=== PATIENT | male | born 1945 | race Caucasian/White ===

== ENCOUNTER → 2025-02-20 | Outpatient (CLI) | payer OTHER, SELFPAY ==
[2025-02-20 09:20] LABS: Collection Type, Urine Clean Catch
[2025-02-20 09:44] LABS: Basophils # (Auto) 0.1 Thou/mm3 (0.0-0.2); Basophils % (Auto) 1 % (0-2.5); Eosinophils # (Auto) 0.5 Thou/mm3 (0.0-0.5); Eosinophils % (Auto) 6 % (0-10); Hematocrit 42.7 % (41.0-53.0); Hemoglobin 14.4 g/dL (13.5-16.0); Immature Granulocytes % (Auto) 1 % (0-0); Immature Granulocytes Auto 0.05 Thou/mm3 (0.00-0.00); Lymphocytes # (Auto) 1.3 Thou/mm3 (1.0-4.8); Lymphocytes % (Auto) 14 % (10-50); Mean Corpuscular HGB Conc 33.7 g/dl (31.0-37.0); Mean Corpuscular Hemoglobin 29.2 pg (25.0-35.0); Mean Corpuscular Volume 87 fL (80-100); Monocytes # (Auto) 0.9 Thou/mm3 (0.0-0.8); Monocytes % (Auto) 10 % (0-12); Neutrophils % (Auto) 68 % (37-80); Nucleated Red Blood Cell % 0 /100 WBC (0); Platelet Count 303 Thou/mm3 (140-440); RDW Standard Deviation 41.6 fL (35.1-43.9); Red Blood Count 4.93 Miln/mm3 (4.50-5.90); White Blood Count 8.8 Thou/mm3 (3.8-10.6)
[2025-02-20 09:51] LABS: Glucose Estimated Average 154 mg/dL (80-131)
[2025-02-20 09:55] LABS: Bacteria,Urine Rare; Bilirubin,Urine Negative (Negative); Blood,Urine Negative (Negative); Clarity,Urine Clear (Clear/Hazy); Color,Urine Yellow (Lt Yel-Yel); Glucose, Urine Negative (Negative); Ketones,Urine Negative (Negative); Leukocyte Esterase,Urine Negative (Negative); Nitrite,Urine Negative (Negative); PH,Urine 6.5 (5.0-7.0); Protein,Urine Trace (Neg - Trace); RBC,Urine 3 /hpf (0-3); Specific Gravity,Urine 1.019 (1.001-1.035); Squamous Epithelial Cell,Urine < 1 /hpf (0-5); WBC,Urine 6 /hpf (0-5)
[2025-02-20 10:00] LABS: Vitamin B12 496 pg/mL (211-911); Vitamin D 25 Hydroxy Total 58.6 ng/mL (7.3-40.2)
[2025-02-20 10:02] LABS: Alanine Aminotransferase 18 U/L (10-49); Albumin, Serum 4.2 gm/dL (3.4-4.8); Albumin/Globulin Ratio 1.6 (1.2-2.2); Alkaline Phosphatase 80 U/L (46-116); Anion Gap 10 (7-16); Aspartate Amino Transferase 23 U/L (0-34); BUN/Creatinine Ratio 11 Ratio (12-20); Blood Urea Nitrogen 11 mg/dL (9-23); Calcium 9.1 mg/dL (8.3-10.6); Calcium (Corrected) 9.1 mg/dL (8.5-10.1); Carbon Dioxide 27.6 mMol/L (20.0-31.0); Cardiac Risk Estimate 4.7 RATIO (4.0-6.7); Chloride 105 mMol/L (98-107); Cholesterol 146 mg/dL (132-200); Globulin 2.6 gm/dL (2.3-3.5); Glucose 121 mg/dL (74-106); HDL Cholesterol 31 mg/dL (40-60); LDL Cholesterol,Calculated 98 mg/dL (0-130); Osmolality,Calculated 285 (275-295); Potassium 3.5 mMol/L (3.4-5.1); Sodium 143 mMol/L (136-145); Thyroid Stimulating Hormone 3.26 uIU/mL (0.55-4.78); Total Protein 6.8 gm/dL (5.7-8.2); Triglycerides 85 mg/dL (30-150); eGFR > 60 See Note
[2025-02-20 10:13] LABS: Syphilis Nonreactive (Nonreactive)
== END | disposition home or self-care (01) ==
LOC: COPL 08:48
PROVIDERS: PCP Family Medicine; Referring Provider Family Medicine; Visit Provider Family Medicine
DX: Z00.00 Encounter for general adult medical examination without abnormal findings (principal); E11.40 Type 2 diabetes mellitus with diabetic neuropathy, unspecified; E78.2 Mixed hyperlipidemia; E55.9 Vitamin D deficiency, unspecified; R41.3 Other amnesia
CPT/HCPCS: 36415; 80053; 80061; 81001; 82306; 82607; 83036; 84443; 85025; 86780

== ENCOUNTER 2025-05-08 18:58 | Inpatient (IN) | payer OTHER, MEDICARE, SELFPAY ==
[2025-05-08 19:01] VITALS: PULSE 69; RESP 18; O2SAT 92
[2025-05-08 19:02] VITALS: BP 130/74; PULSE 70; RESP 18; TEMP 37; O2SAT 93
--- NOTE | 2025-05-08 19:03 | XR_ITS ---
Examination: AP chest single view Technique AP portable sitting chest single view Date and time: May 08, 2025 1912 hours INDICATIONS: Coughing the knee 3 days ago. FINDINGS: Moderate CHF Mild to moderate enlargement cardiac contour. Prominent vascular congestion with perihilar edema Reverse right shoulder arthroplasty IMPRESSION: Moderate CHF
--- NOTE | 2025-05-08 19:03 | XR_ITS ---
Examination: CT brain head without contrast. 2-D sagittal coronal reconstructions Date and time of exam:May 08, 2025 1934 hours INDICATIONS: Onset altered mental status today CTDI: vol (mGy):48.7 DLP: (mGycm):1004 Technique: Multiple CT axial sections of the brain have been obtained, 5 mm slice thickness. Contrast has not been administered. 2-D sagittal, coronal reconstructions have been obtained Low dose protocols were performed. One or more of the following dose reduction techniques were used; automated exposure control, adjustment of the mA and/or KV according to patient size, use of iterative reconstruction technique. Findings: No significant ventricular enlargement. Old infarct right cerebellar hemisphere Intra-axial or extra-axial hemorrhage density is not seen. No mass effect or midline shift Basal cisterns are not remarkable. Fourth ventricle is midline. Cranial vault intact. Impression: Negative for acute hemorrhage, mass effect or midline shift
[2025-05-08 19:27] LABS: Base Excess, Venous 5 (-3-3); Lactate (Lactic Acid) 1.8 mMol/L (0.4-2.0); O2 Saturation, Venous 92 % (96-97); PCO2, Venous 34 mmHg (36-56); PO2, Venous 55 mmHg (15-58); pH, Venous 7.52 (7.33-7.66)
[2025-05-08 19:32] LABS: Basophils # (Auto) 0.1 Thou/mm3 (0.0-0.2); Basophils % (Auto) 1 % (0-2.5); Eosinophils # (Auto) 0.1 Thou/mm3 (0.0-0.5); Eosinophils % (Auto) 2 % (0-10); Hematocrit 35.9 % (41.0-53.0); Hemoglobin 12.5 g/dL (13.5-16.0); Immature Granulocytes % (Auto) 1 % (0-0); Immature Granulocytes Auto 0.05 Thou/mm3 (0.00-0.00); Lymphocytes # (Auto) 0.6 Thou/mm3 (1.0-4.8); Lymphocytes % (Auto) 7 % (10-50); Mean Corpuscular HGB Conc 34.8 g/dl (31.0-37.0); Mean Corpuscular Hemoglobin 29.4 pg (25.0-35.0); Mean Corpuscular Volume 85 fL (80-100); Monocytes # (Auto) 0.6 Thou/mm3 (0.0-0.8); Monocytes % (Auto) 7 % (0-12); Neutrophils # (Auto) 7.3 Thou/mm3 (1.8-7.7); Neutrophils % (Auto) 83 % (37-80); Nucleated Red Blood Cell % 0 /100 WBC (0); Platelet Count 263 Thou/mm3 (140-440); RDW Standard Deviation 42.5 fL (35.1-43.9); Red Blood Count 4.25 Miln/mm3 (4.50-5.90); White Blood Count 8.9 Thou/mm3 (3.8-10.6)
[2025-05-08 19:53] LABS: B-Type Natriuretic Peptide 2717 pg/mL (0-100)
[2025-05-08 20:00] VITALS: BP 130/71; PULSE 74; RESP 24; TEMP 36.6; O2SAT 97
[2025-05-08 20:01] LABS: Alanine Aminotransferase < 7 U/L (10-49); Albumin, Serum 3.8 gm/dL (3.4-4.8); Albumin/Globulin Ratio 1.6 (1.2-2.2); Alkaline Phosphatase 62 U/L (46-116); Anion Gap 11 (7-16); BUN/Creatinine Ratio 16 Ratio (12-20); Bilirubin,Total 1.2 mg/dL (0.3-1.2); Blood Urea Nitrogen 13 mg/dL (9-23); Calcium 8.8 mg/dL (8.3-10.6); Carbon Dioxide 27.4 mMol/L (20.0-31.0); Chloride 103 mMol/L (98-107); Creatinine (Component) 0.8 mg/dL (0.6-1.3); Globulin 2.4 gm/dL (2.3-3.5); Glucose 172 mg/dL (74-106); Osmolality,Calculated 285 (275-295); Potassium 3.3 mMol/L (3.4-5.1); Procalcitonin 0.07 ng/ml (0.0-0.49); Sodium 141 mMol/L (136-145); Total Protein 6.2 gm/dL (5.7-8.2); eGFR > 60 See Note
[2025-05-08 20:19] LABS: Troponin I 0.087 ng/mL (0.0-0.045)
[2025-05-08 20:54] VITALS: BP 130/71; PULSE 63
[2025-05-08] MEDS: FUROSEMIDE INJ 10 MG/ML 4ML VIAL 40 MG IVP (20:54)
[2025-05-08] MEDS: Aspirin 325 MG TABLET PO (20:54)
--- NOTE | 2025-05-08 21:09 | EDNOTE_ITS ---
<Statement entered by Katrina Freire MD - 05/09/25 18:31> As co-signing physician, I was present and available for consult prn. I concur with the plan and care as documented by the midlevel provider. Neuro Symptoms Deficit-RME/HPI General Chief Complaint: Neuro Symptoms/Deficit Stated Complaint: SLURRED SPEECH Time Seen by Provider: 05/08/25 19:03 Arrival date/time: 05/08/25 18:58 Limitations: no limitations RME / HPI RME / HPI Narrative: 79-year-old male with history of diabetes comes in by EMS after being found on the floor. Initially patient appeared confused but able to respond to questions moving all extremities. Per yesterday's behavior was odd for patient. She thought it was related to his diabetic neuropathy and taking too much gabapentin. Rachel yesterday started complaining about cough and some shortness of breath today took a little too much Robitussin and thinks it had a bad interaction with gabapentin. Denies headache or chest pain at this time but is having shortness of breath. And some leg swelling which is new for him. 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 No history of stroke stents or [place]. Recently moved from [place]. No fever. Related Data Home Medications ?Medication ?Instructions ?Recorded ?Confirmed bupropion HCl 150 mg tablet,12 hr 150 mg PO BID 05/09/25 sustained-release fluticasone propionate 50 1 spray intranasal QDAY PRN nasal 05/09/25 05/09/25 mcg/actuation nasal congestion spray,suspension gabapentin 800 mg tablet 800 mg PO TID 05/09/2505/09 pantoprazole 40 mg tablet,delayed 40 mg PO DAILY 05/0905/09/25 release sertraline 100 mg tablet 100 mg PO HS 05/09/25 tamsulosin 0.4 mg capsule 0.4 mg PO DAILY 05/09/2510/23 Allergies Allergy/AdvReac Type Severity Reaction Status Date / Time No Known Allergies Allergy Verified 05/08/25 19:03 Review of Systems Review of Systems Systems Reviewed: All systems reviewed, normal except as documented Constitutional Constitutional: Denies fever(s) Cardiovascular Cardiovascular: Denies chest pain and Reports dyspnea Respiratory Respiratory: Reports as per HPI and Reports dyspnea Musculoskeletal Musculoskeletal: Reports as per HPI and Reports limited range of motion ED Exam General Limitations: Present no limitations General appearance: Present alert and in no apparent distress Head Head exam: Present atraumatic Eye Eye exam: Present normal appearance, PERRL and EOMI ENT ENT exam: Present normal exam, normal oropharynx and mucous membranes moist Neck Neck exam: Present normal inspection, full ROM and trachea midline Chest Chest inspection: Present normal inspection and symmetric chest wall rise Respiratory Respiratory exam: Present other (Crackles noted with documented hypoxia) Cardiovascular Cardiovascular exam: Present regular rate, normal rhythm and normal heart sounds Abdominal Exam Abdominal exam: Present soft and normal bowel sounds Extremities Exam Extremities exam: Present full ROM and other (1+ bilateral edema to extremities) Back Exam Back exam: Present normal inspection and full ROM Neurological Exam Neurological exam: Present alert, oriented X3 and CN II-XII intact Psychiatric Psychiatric exam: Present normal affect and normal mood Skin Skin exam: Present warm, dry, intact and normal color Course Quality Measures none Orders Category Date Time Status Bedside COVID-19 Antigen Test NOW Care 05/08/25 19:04 Active Bedside Influenza A&B Antigen Test NOW Care 05/08/25 19:04 Completed EKG (ED ONLY) *Do not use* NOW Care 05/08/25 19:[address] head/brain wo con Stat Exams 05/08/25 19:03 Completed EKG (ED Only) Stat Exams 05/08/25 19:03 Ordered XR chest 1V Stat Exams 05/08/25 19:03 Completed BNP [B-Type Natriuretic Peptide] Stat Lab 05/08/25 19:21 Completed Blood Culture (Lab) Stat Lab 05/08/25 21:39 Received CBC Stat Lab 05/08/25 19:21 Completed CMP [Comprehensive Metabolic Panel] Stat Lab 05/08/25 19:21 Completed Lactic Acid [Lactate (Lactic Acid)] Stat Lab 05/08/25 19:21 Completed Procalcitonin Stat Lab 05/08/25 19:21 Completed Troponin I Stat Lab 05/08/25 19:21 Completed VBG [Venous Blood Gas] Stat Lab 05/08/25 19:21 Completed Aspirin Med 05/08/25 20:40 Discontinued 325 mg PO X1 ONE Furosemide Inj [Lasix Inj] Med 05/08/25 20:40 Discontinued 40 mg IVP X1 ONE Vital Signs Vital signs: Vital Signs Temperature 98.6 F 05/08/25 19:02 Pulse Rate 70 05/08/25 19:02 Respiratory Rate 18 05/08/25 19:02 Blood Pressure 130/74 05/08/25 19:02 Pulse Oximetry (%) 93 L 05/08/25 19:02 Oxygen Delivery Method Nasal Cannula 05/08/25 19:02 Oxygen Flow Rate 6 05/08/25 19:02 Procedures -ED EKG Interpretation #1: Date of EK05/08/25 Time of EK:11 Rate: 70 Interpretation: Interpreted by me EKG Impression: Normal sinus rhythm, No acute ST-T changes and No ectopy Neuro Symptoms / Deficit MDM Narrative MDM Narrative:: 79-year-old male with history of recurrent falls here for shortness of breath. Found to be in heart failure with elevated BNP and troponin. No history of same. For that reason we will bring him for acute CHF exacerbation Patient data External records reviewed:: None Clinical information provided by:: patient and family Social determinants that could affect healthcare access:: other (specify) (Elderly patient requiring assistance) Patient has the following chronic illnesses:: Diabetes How is presenting disease/condition affected by chronic disease/condition?: exacerbated by Evaluation data The following diagnostics were reviewed and interpreted by me:: lab results and radiology exam(s) Lab and/or radiology exams considered but not ordered:: CTA of chest was considered however unlikely to change course of action to admit Interpretation Summary: Normal CBC, CMP. Chest x-ray showed moderate CHF, CT of head within normal limits. Troponin of 0.087 and BNP of 2,717 Medications / Prescriptions Medications or Prescriptions considered but not ordered:: All medications considered given other than nitro patient declined Medication administrations:: Medication Administration History Acetaminophen (Acetaminophen 325 Mg Tablet) 650 mg PO Q6H PRN PRN Reason: pain and Fever >100.4 Stop: 06/07/25 23:12 Hydrocodone Bitart/Acetaminophen (Hydrocodone/Apap 5/325 Tablet) 1 tab PO Q4HR PRN PRN Reason: PAIN SCALE 4-10(Mod-Sev Stop: 05/13/25 23:12 Aspirin (Aspirin Ec 81 Mg Tabec) 81 mg PO QDAY VLADISLAV Stop: 06/08/25 08:59 Dextrose (Dextrose 50%-Water Inj 50 Ml Syringe) 25 ml IV Q15MIN PRN PRN Reason: BG 50-70 responsive npo pt Stop: 06/08/25 00:00 Dextrose (Dextrose 50%-Water Inj 50 Ml Syringe) 50 ml IV Q15MIN PRN PRN Reason: BG <50 OR BG <70 & pt unresponsive Stop: 06/08/25 00:00 Furosemide (Furosemide Inj 10 Mg/Ml 4ml Vial) 40 mg IVP BIDD VLADILSAV Stop: 06/08/25 05:59 Last Admin: 05/09/25 05:54 Dose: 40 mg Documented By: Glucagon (Glucagon Inj 1 Mg Vial) 1 mg IM Q15MIN PRN PRN Reason: BG <70, and no IV access Insulin Human Lispro (Insulin Lispro (Admelog) 1 Unit/0.01 Ml Unit) 0 unit SC Q6H VLADISLAV; Protocol Stop: 06/08/25 00:00 Last Admin: 05/09/25 05:55 Dose: Not Given Documented By: Non-Admin Reason: Patient Refused Admin: 05/09/25 01:37 Dose: Not Given Documented By: LADAN Non-Admin Reason: Patient Refused Ondansetron HCl (Ondansetron Inj 2 Mg/Ml Inj 2 Ml) 4 mg IVP Q6H PRN; Protocol PRN Reason: NAUSEA OR VOMITING Stop: 06/07/25 23:12 Pantoprazole Sodium (Pantoprazole Inj 40 Mg Vial) 40 mg IVP QDAY [facility] Stop: 06/08/25 08:59 Discontinued Medications Aspirin (Aspirin 325 Mg Tablet) 325 mg PO X1 ONE Stop: 05/08/25 20:41 Last Admin: 05/08/25 20:54 Dose: 325 mg Documented By: LATOSHA Furosemide (Furosemide Inj 10 Mg/Ml 4ml Vial) 40 mg IVP X1 ONE Stop: 05/08/25 20:41 Last Admin: 05/08/25 20:54 Dose: 40 mg Documented By: LATOSHA Heparin Sodium (Porcine) (Heparin Sod Inj 5000 Unit/Ml Vial) 5,000 unit SC Q8HR [facility] Stop: 05/23/25 05:59 Potassium Chloride (Kcl Ivpb) 10 meq in 100 mls @ 100 mls/hr IV Q1H VLADISLAV Stop: 05/09/25 01:46 Last Infusion: 05/09/25 03:43 Dose: Infused Documented By: Admin: 05/09/25 02:43 Dose: 100 mls/hr Documented By: Infusion: 05/09/25 02:23 Dose: Infused Documented By: Admin: 05/09/25 01:23 Dose: 100 mls/hr Documented By: LATOSHA Potassium Chloride (Potassium Chloride 20 Meq Tabcr) 40 meq PO X1 ONE Stop: 05/09/25 08:19 See above Consultations Consultation(s) initiated? (list below): Yes Consultation #1 (Physician, Specialty, Details): [id number] Nagel is working with Dr. Villalobos for admission for acute chf exacerbation, pt will be admittede for acute chf exacerbation Diagnosis Neuro Differential Diagnosis: delirium, cerebrovascular accident, transient cerebral ischemia and other (ACS, CHF, polypharmacy altered mentation) Most likely diagnosis given after review of the tests above:: Acute CHF exacerbation Diabetes Polypharmacy Admission Indicated Admission indicated?: indicated Admission Request Was there a request for admission?: Yes Admission Attestation Admission request attestation: Discussed case with Dr. villalobos Hospitalist service regarding admission. Discussed patients ED course, exam findings, labs, and radiology results. The Hospitalist agrees to accept the patient for admission. Disposition Plan Disposition Plan: Admit Discharge Plan Plan Patient Disposition: Admit Acute Care w/in Hospital Discharge Disposition comment: Dr. Villalobos Problem List Clinical Impression: Acute exacerbation of CHF (congestive heart failure), Shortness of breath, Diabetes mellitus, Fall PA/NETWORKING TECHNICIAN Supervising Physician PA/NETWORKING TECHNICIAN Supervising Physician: Dr. Freire
[2025-05-08 22:12] VITALS: BMI 28.7
[2025-05-08 22:21] VITALS: BP 147/87; PULSE 70; RESP 24; TEMP 36.9; O2SAT 97
--- NOTE | 2025-05-08 23:18 | PD.RESHP ---
Documentation for date of: 05/08/25 HPI History of Present Illness Chief complaint: Cough, Dyspnea on exertion, fall History of present illness: 79-year-old male with past medical history of peripheral neuropathy, depression, and DM2 was admitted to the hospital on 05/08/2025 with come to the ED with complaints of cough along with shortness of breath on exertion and today he also had a fall. Patient's was at bedside and stated that today he had a fall in the shower and was stumbling around an hour as she was asleep and did not hear him. She stated that she pulled him out of the shower and called EMS to come and get him. Patient's stated that he has been having trouble with his short-term memory and he has been more secluded since they moved to [place] from [place]. She stated that he is not wearing his dentures and that he is taking medication for his depression as well. When asked patient states that he is fine and he is currently AO x 4 at this time. He stated that he has been having some cough that started the day before yesterday and he has been taking Robitussin little sips at a time whenever he has a cough. He states that he can lay flat, but patient's stated that whenever he walks he becomes very short of breath walking from the room to the kitchen and back he gets very short of breath. He uses a walker, but he has been having multiple falls as of recently per the . He has not noticed any swelling in the lower extremities and states that he has not had any heart issues in the past. Otherwise the patient's only had complaints that he has been more delirious. ED course: Initially came in normotensive and afebrile. Initial labs were relevant for low hemoglobin, hypokalemia, troponinemia, and elevated BNP. Initial imaging included chest x-ray which showed CHF pattern and head CT which was unremarkable. PMH: As above Surgical Hx: Bilateral knee and shoulder surgery Medications: Gabapentin Social Hx: Denies any drugs, smoking, alcohol Review of Systems Review of Systems Systems Reviewed: All systems reviewed, normal except as documented Exam Vital Signs Temp Pulse Resp BP Pulse Ox O2 Del Method O2 Flow Rate 98.5 F 70 24 H 147/87 H 97 Nasal Cannula 6 05/08/25 22:21 05/08/25 22:21 05/08/25 22:21 05/08/25 22:21 05/08/25 22:21 05/08/25 22:21 05/08/25 22:21 Narrative Exam General: A/O x4, no acute distress Eyes: PERRL, EOMI. Anicteric, vision grossly intact. Ears: No ear pain, no ear discharge, Hearing grossly intact. Nose: No nasal discharge. Mouth/Throat: Moist mucous membranes, missing dentures no redness, no lesions. Neck: Neck supple, non-tender, no cervical lymphadenopathy. Lungs: decreased in ROS lower lobes, No accessory muscle use. Cardio: Normal S1/S2, regular rhythm, no murmurs, no JVD Abdomen: Soft, non-tender, no palpable masses, peristalsis present, no guarding or rebound. Extremities: Symmetrical, no significant deformities, no peripheral edema , non-tender, peripheral pulses presents. Skin: No rashes, no lesions, warm to touch. Neuro: No focal neurological deficits. motor and sensory intact Psych: Cooperative, appropriate mood and effect. Results: Labs 05/08/25 19:21 05/08/25 19:21 Labs: Short CBC 05/08/25 Range/Units 19:21 WBC 8.9 (3.8-10.6) Thou/mm3 Hgb 12.5 L (13.5-16.0) g/dL Hct 35.9 L (41.0-53.0) % Plt Count 263 (140-440) Thou/mm3 BMP 05/08/25 19:21 Sodium 141 Potassium 3.3 L Chloride 103 Carbon Dioxide 27.4 BUN 13 Creatinine 0.8 Glucose 172 H Calcium 8.8 Cardiac Enzymes 05/08/25 Range/Units 19:21 Troponin I 0.087 H* (0.0-0.045) ng/mL Liver Function 05/08/25 Range/Units 19:21 Total Bilirubin 1.2 (0.3-1.2) mg/dL ALT < 7 L (10-49) U/L Alkaline Phosphatase 62 (46-116) U/L Albumin 3.8 (3.4-4.8) gm/dL ABG Interpretation ABG results: 05/08/25 19:21 VBG pH 7.52 VBG pCO2 34 L VBG pO2 55 VBG Base Excess 5 H Quality Measures Quality Measures VTE prophylaxis Advance care planning discussed with:: patient and spouse Medications Home Medications and Allergies Allergies Allergy/AdvReac Type Severity Reaction Status Date / Time No Known Allergies Allergy Verified 05/08/25 19:03 Visit Medications Acetaminophen (Acetaminophen 325 Mg Tablet) 650 mg PO Q6H PRN PRN Reason: pain and Fever >100.4 Stop: 06/07/25 23:12 Hydrocodone Bitart/Acetaminophen (Hydrocodone/Apap 5/325 Tablet) 1 tab PO Q4HR PRN PRN Reason: PAIN SCALE 4-10(Mod-Sev Stop: 05/13/25 23:12 Furosemide (Furosemide Inj 10 Mg/Ml 4ml Vial) 40 mg IVP BIDD [facility] Stop: 06/08/25 05:59 Heparin Sodium (Porcine) (Heparin Sod Inj 5000 Unit/Ml Vial) 5,000 unit SC Q8HR VLADISLAV Stop: 05/23/25 05:59 Ondansetron HCl (Ondansetron Inj 2 Mg/Ml Inj 2 Ml) 4 mg IVP Q6H PRN; Protocol PRN Reason: NAUSEA OR VOMITING Stop: 06/07/25 23:12 Discontinued Medications Aspirin (Aspirin 325 Mg Tablet) 325 mg PO X1 ONE Stop: 05/08/25 20:41 Last Admin: 05/08/25 20:54 Dose: 325 mg Furosemide (Furosemide Inj 10 Mg/Ml 4ml Vial) 40 mg IVP X1 ONE Stop: 05/08/25 20:41 Last Admin: 05/08/25 20:54 Dose: 40 mg Assessment & Plan Plan 79-year-old male with past medical history of peripheral neuropathy, depression, and DM2 was admitted to the hospital on 05/08/2025 for new onset acute decompensated heart failure. #Acute decompensated heart failure exacerbation, new onset #Dyspnea on exertion #Troponinemia Patient came in with complaints of dyspnea on exertion Patient has no history of heart failure On physical exam patient has no lower extremity edema BNP was elevated at 2717 Troponins were elevated at 0.087, but patient did not have any chest pain. Chest x-ray that shows CHF pattern Plan: IV Lasix 40 twice daily Echo ordered Trend troponins Daily weights Strict LAUREN's Keep potassium magnesium above 4 and 2 respectively Cardiology consulted, appreciate recommendations #Normocytic normochromic anemia #Vomiting Patient came hemoglobin 12.5 and was previously 14.4 on 02/20/2025 Patient was noted to have an episode of dark emesis, but did not look like coffee-ground No active signs of bleeding Plan: Protonix 40 twice daily for now, consider switching to p.o. if patient passes swallow screen and no more episodes of dark emesis Consider GI consult with patient's hemoglobin continues to drop for possible GI bleed We will continue to monitor #Ground-level fall Patient had a fall today in the shower Plan: Shoulder x-ray ordered as patient hit his shoulders Will follow-up on shoulder x-ray #Changes in mental status Patient's stated that patient has been having issues with short-term memory and that she has seen him more withdrawn and secluded to his room This could be possible depression versus possible progression of dementia Head CT was negative Plan: Consider outpatient neurology follow-up for further workup. #Cough Patient has been having a cough for the past 2 days and around 3 weeks ago he sick contact with the flu Patient does not have any fevers and has not had any WBC spikes and procalcitonin was negative therefore low threshold for pneumonia Plan: Consider starting patient on antibiotics if he spikes any fevers or spikes any WBC. Chronic diseases: #DM2 #Peripheral neuropathy ISS and hypoglycemia protocol ordered Pending med reconciliation Disposition: Patient admitted to telemetry for new onset CHF Diet: NPO GI prophylaxis: Protonix DVT prophylaxis: SCDs Code: DNR Case disclosed with Attending Dr. Griselda Adrian PGY1 Disclaimer: Even though this this note was dictated by speech recognition and even though it was carefully revised there may still be minor errors in pole classifier due to voice recognition software. Attending Provider Attestation/Addendum I reviewed labs, imaging, EKG, home medications and prior available records. Face to face evaluation was performed by me. I have personally examined the patient and discussed assessment and plan with the IM team. I reviewed the resident note and agree with the plan with exceptions as below. Ground-level fall Dyspnea on exertion New onset CHF Dyspepsia Elevated troponin Hypokalemia Cognitive impairment Patient does have significant BNP elevation as well as pulmonary vascular congestion Less likely due to pneumonia as no leukocytosis, productive cough, or elevated procalcitonin Reported brown emesis. Will start IV Protonix. Monitor for hematemesis and trend H&H Trend troponin Order echocardiogram Consult cardiology Replete potassium as needed and monitor BMP
[2025-05-08 23:34] VITALS: BP 150/86; PULSE 73; RESP 26; O2SAT 96
--- NOTE | 2025-05-08 23:37 | XR_ITS ---
Shoulder bilateral, 2 views Technique: Shoulder AP internal rotation, each shoulder total 2 views Exam date and time :May 08, 2000 2540 5:00 PM INDICATIONS: Patient fell today with injury to both shoulders, bilateral shoulder pain. FINDINGS: Reverse right shoulder arthroplasty with satisfactory alignment Orthopedic screws left humeral head No fracture involving either shoulder IMPRESSION: No fracture involving either shoulder
--- NOTE | 2025-05-08 23:44 | XR_ITS ---
Examination: Abdomen AP single view Technique: AP portable supine abdomen, single view Exam date and time: May 08, 2025 11:53 PM INDICATIONS: Abdominal distention today. FINDINGS: Moderate stool throughout the colon A loop of small bowel in the upper abdomen No free air Prominent osteopenia IMPRESSION: Suspicious for mild small bowel ileus, consider three-way abdominal series follow up as clinically warranted
[2025-05-09] VITALS (12 sets, daily range): BP systolic 128–165; BP diastolic 71–102; PULSE 65–78; RESP 18–24; TEMP 36.1–36.4; O2SAT 92–95; BMI 27.8
[2025-05-09 00:14] LABS: Troponin I 0.069 ng/mL (0.0-0.045)
[2025-05-09] MEDS: POTASSIUM CHL 10 mEq IVPB 10 MEQ/100 ML BAG 100 MEQ IV ×2 (01:23→02:43)
[2025-05-09 05:00] LABS: Basophils # (Auto) 0.1 Thou/mm3 (0.0-0.2); Basophils % (Auto) 1 % (0-2.5); Eosinophils % (Auto) 0 % (0-10); Immature Granulocytes % (Auto) 1 % (0-0); Immature Granulocytes Auto 0.06 Thou/mm3 (0.00-0.00); Lymphocytes # (Auto) 0.8 Thou/mm3 (1.0-4.8); Lymphocytes % (Auto) 6 % (10-50); Mean Corpuscular HGB Conc 34.2 g/dl (31.0-37.0); Mean Corpuscular Hemoglobin 29.6 pg (25.0-35.0); Mean Corpuscular Volume 87 fL (80-100); Monocytes # (Auto) 0.7 Thou/mm3 (0.0-0.8); Monocytes % (Auto) 6 % (0-12); Neutrophils # (Auto) 10.6 Thou/mm3 (1.8-7.7); Neutrophils % (Auto) 87 % (37-80); Nucleated Red Blood Cell % 0 /100 WBC (0); Platelet Count 270 Thou/mm3 (140-440); RDW Standard Deviation 42.9 fL (35.1-43.9); Red Blood Count 4.39 Miln/mm3 (4.50-5.90); White Blood Count 12.2 Thou/mm3 (3.8-10.6)
--- NOTE | 2025-05-09 05:23 | PC.NURSE ---
Report called for floor nurse, JEWEL Velazco
[2025-05-09] MEDS: FUROSEMIDE INJ 10 MG/ML 4ML VIAL 40 MG IVP ×2 (05:54→17:58)
--- NOTE | 2025-05-09 08:03 | EKG_ITS ---
[facility] Test Date: 2025-05-09 Pat Name: STEFANI ROWLEY [facility] Gender[facility] Artist Model: KEIKO : [id number] Requested By: Adelia Cavazos Order Number: [id number] Reading MD: Adelia Cavazos Measurements Intervals [place] Rate: 73 P: -73 IA: 117 QRS: 48 QRSD: 110 T: 29 QT: 414 QTc: 458 Interpretive Statements JUNCTIONAL RHYTHM WITH OCCASIONAL VENTRICULAR PREMATURE COMPLEXES POSSIBLE INFERIOR MYOCARDIAL INFARCTION , PROBABLY OLD ABNORMAL RHYTHM ECG No previous ECG available for comparison /[id number]/[email or web address]/[id number]
[2025-05-09 08:27] LABS: Collection Type, Urine Clean Catch; Squamous Epithelial Cell,Urine 0 /hpf (0-5)
[2025-05-09 08:27] LABS: Glucose Estimated Average 137 mg/dL (80-131); Hemoglobin A1C 6.4 % Hgb (4.8-6.0)
[2025-05-09 08:29] LABS: Cardiac Risk Estimate 3.7 RATIO (4.0-6.7); Cholesterol 141 mg/dL (132-200); HDL Cholesterol 38 mg/dL (40-60); LDL Cholesterol,Calculated 85 mg/dL (0-130); Triglycerides 89 mg/dL (30-150)
[2025-05-09 08:33] LABS: Bilirubin,Urine Negative (Negative); Blood,Urine Negative (Negative); Clarity,Urine Clear (Clear/Hazy); Color,Urine Colorless (Lt Yel-Yel); Glucose, Urine Negative (Negative); Hyaline Casts,Urine < 1 /hpf (0-1); Ketones,Urine Negative (Negative); Leukocyte Esterase,Urine Negative (Negative); Nitrite,Urine Negative (Negative); PH,Urine 7.5 (5.0-7.0); Protein,Urine Negative (Neg - Trace); RBC,Urine 2 /hpf (0-3); Specific Gravity,Urine 1.006 (1.001-1.035); Urobilinogen,Urine Negative mg/dL (0.0-1.0); WBC,Urine 1 /hpf (0-5)
[2025-05-09] MEDS: ASPIRIN EC 81 MG TABEC PO (08:53)
[2025-05-09] MEDS: PANTOPRAZOLE INJ 40 MG VIAL IVP (08:54)
[2025-05-09] MEDS: TAMSULOSIN HCL 0.4 MG CAPSULE PO (08:54)
[2025-05-09] MEDS: POTASSIUM CHLORIDE 20 mEq TABCR 40 MEQ PO (08:59)
--- NOTE | 2025-05-09 09:37 | PD.RESCONSUL ---
HPI Data of Consult Requesting Physician: Ryan Acharya MD Admitting Provider: Dakota Villalobos MD Attending Provider: Ryan Acharya MD Primary Care Provider: Physician No Primary/Family Consult Narrative History of present illness: CC: mechanical fall and Shortness of Breath Patient is an 79-year-old male with a past medical history of diabetes mellitus type 2 [id number] (no medication on board/initially on metformin but DC'd after weight loss), peripheral neuropathy, history of depression, and BPH who presented to the emergency room with increasing shortness of breath and concern for a mechanical level mechanical fall. Patient stated requires pillows to sleep at night (positive orthopnea), denied paroxysmal nocturnal dyspnea, lower peripheral edema gradually increasing over the last 15 years. Patient experiences shortness of breath upon ambulation, per , patient can only take about 45 steps and then experiences shortness of breath. Patient has never followed up with a boiler engineer. Patient was set to establish primary care this week with Dr. Bowman. Concern for mechanical fall that occurred in the restroom. Patient stated he lost his balance as he was turning with his walker. Patient denied tripping on a rug or on his feet and to clear of any obstructions. Patient denied seizure-like activity. Patient denied losing consciousness. Patient denied head trauma. Patient denied dizziness or syncopal event. Per at bedside, patient has been having increasing problems with short-term memory and balance. Patient denied any chest pain or pressure. Denied nasuea or diaphoresis. Denied any recent sick contacts. 05/09/2025: Overnight admission. Cardiology Consulted for new onset of CHF. Patient examined at bedside, per chart review, edema on admission, this morning trace edema. Reduce Lasix from 40 mg BID to lasix 40 mg IVP Qday. Introduce Metoprolol Succinate 25 mg qday, blood pressure permitting. 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 NO Hoarseness, NO sore throat, NO swollen neck. Cardiac: NO Palpitations, Yes dyspnea on exertion, YES orthopnea, NO paroxysmal nocturnal dyspnea, Yes edema Respiratory: NO Shortness of Breath, NO Wheezing, NO Cough, NO Sputum, NO hemoptysis GI:NO appetite, NO nausea, NO vomiting, NO dysphagia, NO changes in bowel frequency, NO stool color, NO diarrhea, NO constipation, NO hemetemesis, NO hemorrhoids, NO melena, NO hematechezia, NO abdominal pain, NO jaundice Renal: NO frequency, NO hesitancy, NO urgency, NO hematuria, NO nocturia, No incontinence, Retention, yes, secondary to BPH MSK: NO muscle weakness, NO gout, NO arthritis, NO muscle stiffness Neuro: NO headaches, NO tremors, NO weakness, NO paralysis, NO seizures, NO loss of consciousness, NO numbness. Hem: NO anemia, NO easy bruising/bleeding, NO petechiae, NO purpura Endo: NO heat/cold intolerance, NO excessive sweating, NO polyuria, NO polydipsia, NO polyphagia, NO thyroid problems, NO diabetes Pysch: NO mood, NO anxiety, NO depression Exam Vital Signs Temp Pulse Resp BP Pulse Ox O2 Del Method O2 Flow Rate 97.6 F 72 18 150/85 H 95 Nasal Cannula 3 05/09/25 08:00 05/09/25 08:00 05/09/25 08:00 05/09/25 08:00 05/09/25 08:00 05/09/25 08:00 05/09/25 08:00 Narrative Exam General Appearance: Alert & Oriented X2, well-nourished male who is lying in bed in no acute distress HEENT: Skull symmetrical and atraumatic. Conjunctivae pale pink and moist. Pupils equal, round, reactive to light and accommodation (PERRL). External ear without lesion or discharge. Cardio: Normal Rate and Rhythm with S1 and S2 heart sounds. Faint systolic murmur. No bruits on carotid auscultation. Trace edema. Lungs: Symmetric with good expansion. Chest and back non-tender. Breath sounds vesicular without crackles, wheezing or rhonchi Abdomen: Non-tender, Non-distended, Normal Reactive Bowel Sounds Neuro: Alert, cooperative, oriented to person, place, and NO time. Speech clear. CN grossly intact. Upper motor strength 5/5 and Lower motor strength 5/5. Sensation intact. Results Labs 05/09/25 04:35 05/08/25 19:21 Labs: Short CBC 05/08/25 05/09/25 Range/Units 19:21 04:35 WBC 8.9 12.2 H (3.8-10.6) Thou/mm3 Hgb 12.5 L 13.0 L (13.5-16.0) g/dL Hct 35.9 L 38.0 L (41.0-53.0) % Plt Count 263 270 (140-440) Thou/mm3 BMP 05/08/25 19:21 Sodium 141 Potassium 3.3 L Chloride 103 Carbon Dioxide 27.4 BUN 13 Creatinine 0.8 Glucose 172 H Calcium 8.8 Cardiac Enzymes 05/08/25 05/08/25 Range/Units 19:21 23:35 Troponin I 0.087 H* 0.069 H* (0.0-0.045) ng/mL Liver Function 05/08/25 Range/Units 19:21 Total Bilirubin 1.2 (0.3-1.2) mg/dL ALT < 7 L (10-49) U/L Alkaline Phosphatase 62 (46-116) U/L Albumin 3.8 (3.4-4.8) gm/dL Urine 05/09/25 Range/Units 08:00 Urine Color Colorless A (Lt Yel-Yel) Urine Clarity Clear (Clear/Hazy) Urine pH 7.5 H (5.0-7.0) Ur Specific [place] 1.006 (1.001-1.035) Urine Protein Negative (Neg - Trace) Urine Glucose (UA) Negative (Negative) ABG Interpretation ABG results: 06/10/25 19:21 VBG pH 7.52 VBG pCO2 34 L VBG pO2 55 VBG Base Excess 5 H Quality Measures Quality Measures none Advance care planning discussed with:: patient Medications Home Medications and Allergies Home Medications ?Medication ?Instructions ?Recorded ?Confirmed ?Type bupropion HCl 150 mg tablet,12 hr 150 mg PO BID 05/09/25 05/09/25 History sustained-release fluticasone propionate 50 1 spray intranasal QDAY PRN nasal 05/09/25 05/09/25 History mcg/actuation nasal congestion spray,suspension gabapentin 800 mg tablet 800 mg PO TID 05/09/25 05/09/25 History pantoprazole 40 mg tablet,delayed 40 mg PO DAILY 05/09/25 05/09/25 History release sertraline 100 mg tablet 100 mg PO HS 05/09/25 05/09/25 History tamsulosin 0.4 mg capsule 0.4 mg PO DAILY 05/09/25 05/09/25 History Allergies Allergy/AdvReac Type Severity Reaction Status Date / Time No Known Allergies Allergy Verified 05/08/25 19:03 Visit Medications Acetaminophen (Acetaminophen 325 Mg Tablet) 650 mg PO Q6H PRN PRN Reason: pain 1-3 OR Fever >100.4 Stop: 06/07/25 23:12 Hydrocodone Bitart/Acetaminophen (Hydrocodone/Apap 5/325 Tablet) 1 tab PO Q4HR PRN PRN Reason: PAIN SCALE 4-10(Mod-Sev Stop: 05/13/25 23:12 Aspirin (Aspirin Ec 81 Mg Tabec) 81 mg PO QDAY [facility] Stop: 06/08/25 08:59 Last Admin: 05/09/25 08:53 Dose: 81 mg Dextrose (Dextrose 50%-Water Inj 50 Ml Syringe) 25 ml IV Q15MIN PRN PRN Reason: BG 50-70 responsive npo pt Stop: 06/08/25 00:00 Dextrose (Dextrose 50%-Water Inj 50 Ml Syringe) 50 ml IV Q15MIN PRN PRN Reason: BG <50 OR BG <70 & pt unresponsive Stop: 06/08/25 00:00 Furosemide (Furosemide Inj 10 Mg/Ml 4ml Vial) 40 mg IVP BIDD [facility] Stop: 06/08/25 05:59 Last Admin: 05/09/25 05:54 Dose: 40 mg Glucagon (Glucagon Inj 1 Mg Vial) 1 mg IM Q15MIN PRN PRN Reason: BG <70, and no IV access Insulin Human Lispro (Insulin Lispro (Admelog) 1 Unit/0.01 Ml Unit) 0 unit SC Q6H VLADISLAV; Protocol Stop: 06/08/25 00:00 Last Admin: 05/09/25 05:55 Dose: Not Given Ondansetron HCl (Ondansetron Inj 2 Mg/Ml Inj 2 Ml) 4 mg IVP Q6H PRN; Protocol PRN Reason: NAUSEA OR VOMITING Stop: 06/07/25 23:12 Pantoprazole Sodium (Pantoprazole Inj 40 Mg Vial) 40 mg IVP QDAY [facility] Stop: 06/08/25 08:59 Last Admin: 05/09/25 08:54 Dose: 40 mg Sertraline HCl (Sertraline Hcl 25 Mg Tablet) 100 mg PO HS [facility]ADISLA[facility] Stop: 06/08/25 20:59 Tamsulosin HCl (Tamsulosin Hcl 0.4 Mg Capsule) 0.4 mg PO DAILY [facility]ADISLA[facility] Stop: 06/08/25 08:59 Last Admin: 05/09/25 08:54 Dose: 0.4 mg Discontinued Medications Acetaminophen (Acetaminophen 325 Mg Tablet) 650 mg PO Q6H PRN PRN Reason: pain and Fever >100.4 Stop: 06/07/25 23:12 Aspirin (Aspirin 325 Mg Tablet) 325 mg PO X1 ONE Stop: 05/08/25 20:41 Last Admin: 05/08/25 20:54 Dose: 325 mg Furosemide (Furosemide Inj 10 Mg/Ml 4ml Vial) 40 mg IVP X1 ONE Stop: 05/08/25 20:41 Last Admin: 05/08/25 20:54 Dose: 40 mg Heparin Sodium (Porcine) (Heparin Sod Inj 5000 Unit/Ml Vial) 5,000 unit SC Q8HR [facility] Stop: 05/23/25 05:59 Potassium Chloride (Kcl Ivpb) 10 meq in 100 mls @ 100 mls/hr IV Q1H [facility]ADISLA[facility] Stop: 05/09/25 01:46 Last Infusion: 05/09/25 03:43 Dose: Infused Potassium Chloride (Potassium Chloride 20 Meq Tabcr) 40 meq PO X1 ONE Stop: 05/09/25 08:19 Last Admin: 05/09/25 08:59 Dose: 40 meq Assessment & Plan Plan Patient is an 79-year-old male with a past medical history of diabetes mellitus type 2 [id number] (no medication on board/initially on metformin but DC'd after weight loss), peripheral neuropathy, history of depression, and BPH who was admitted for new onset of CHF and mechanical ground level. Cardiology Consulted for new onset of CHF. # Acute combined systolic and diastolic congestive heart failure #CHF HFrEF 40%-45% (05/09/2025) #Grade 2 Diastolic Dysfunction Likely CHF progressive, as patient has had peripheral edema for the past 10 years, recently worsening over the last couple months, positive orthopnea, dyspnea on ambulation, negative PND. CHF exacerbation likely the setting of cardiomypoathy and unknown etiology for now. Echo ordered. Monitor output. 05/09/2025: Output not tracked, fluid restricted to 2000 ml Echo (05/08/2025): Normal LV size with mildly decreased LV function. Estimated EF of 40 to 45%. Grade 2 diastolic dysfunction.Normal RV size and function. RVSP could not be estimated because of the trace TR. Massively dilated LA as well as mildly dilated RA. Moderate to severe calcification of aortic valve. Velocity is probably underestimated and possible mild aortic stenosis. Mild MAC. Mild MR trace AI and trace TR. Dilated IVC. No pericardial effusion. Cxr: noted for prominent vascular congestion & cardiac enlargement EKG:V1 and V 2 r wave Anteriolateral leads noted for hypertrophy, NO ST elvation noted, non specific ST changes. QRS 110, QTC 458 Lipid Panel: Triglycerides 89, Cholesterol 141, LDL 85, HDL 38 A1c 6.4% TSH 3.60 NYHA Class: III ASCVD: non applicable given age, consider adding Atorvastatin non the less Plan: -Lasix 40 mg IV BID, consider reducing to Lasix 40 mg PO Qday AM -Work towards GDMT, consider adding Metoprolol XL 25 mg qday, if BP permits -repeat BNP prior to discharge -K>4 and Mg >2 -Fluid Restriction (1999) and Sodium Restriction 2 g per day -SpO <90%, support PRN #Ground-Level Fall #Peripheral Neuropathy Ground level fall likely in the setting of CHF and lower peripheral edema vs pre-syncopal event, such as orthostatic pressure vs TIA, no slurred speech/No loss of motor funciton vs less likely secondary to seizure. CT head negative. Plan -Treat CHF -PT -Consider B12/Folic and Thiamine levels, likely outpatinet -Consider Orthostatic Vitals -Patient would likely benefit of outpatient neurology given concern short term memory problems and possible neuropathy vs gait -Primary team holding gabapentin #Diabetes Mellitus Type type 2, non insulin dependent Past medical history of diabetes, non medication listed during admission, per at bedside, previously on Metformin A1c (05/09/2025): 6.4% Plan -Sliding Scale -Monitor Fasting Glucose -carb consistent low #Rule out upper GI Bleed #Microcytic Anemia Patient has a past medical history of esophageal stricter sp dilation. Patient denied dysphagia. Given reported coffee ground emesis, GI consuled. Hgb 13 hct 38.0 mcv 87 Plan -Consider iron panel /Ferritin -GI Consulted #Depression Holding Sertraline and buspirone vs dementia Health Maintenance: Disp: Pt is currently admitted to floors for further management of CHF and mechanical fall, Cardiology consulted for CHF. FEN: Cardiac DVT: on subQ heparin 8 HR Code: DNR - The patient's plan was discussed with attending Dr. Suzan Cavazos MD PGY1 Internal Medicine Attending Provider Attestation/Addendum I have personally seen and examined the patient separately on the above date of service and discussed the plan of care with the resident. I reviewed the resident Dr. Adelia Cavazos Consultation note and agree with the resident findings and plan in the note above and have also edited the documentation to reflect my findings and plan. Remi Mares M.D. Interventional Cardiology
[2025-05-09] MEDS: INSULIN LISPRO (AdmeLOG) 1 UNIT/0.01 ML UNIT SC (12:53)
--- NOTE | 2025-05-09 13:52 | ESPR_ITS ---
<Statement entered by Yeimy Robb MD - 05/09/25 16:00> Patient was seen and examined at bedside. No acute overnight events. Patient saturating 95% on 4 L nasal cannula, will continue diuresis, and wean off from oxygen as tolerated, patient is having an adequate urine output, net of 500. The plan is to continue IV diuresis, follow-up with echo, pending cardiology recommendations. PT evaluated the patient, recommended SNF placement. was at bedside, all questions and concerns were addressed. They gave verbalized understanding. I personally saw and examined the patient and discussed the assessment and plan with the entire medicine team, including my attending , Yeimy Robb M.D. PGY-2 Disclaimer: Despite multiple revisions, due to the dictation software being used, the document bellow may not be free of grammatical errors including phonetic/typographic errors. However, this does not deter from our commitment to providing health care in the patient's best interest in mind. Documentation for date of: 05/09/25 Subjective Subjective Interval history: Patient examined at bedside. Has no major complaints, alert and oriented x 2. Denies any chest pain, shortness of breath. Blood sugar controlled, on 4 L nasal cannula saturating 95%. Telemetry reviewed--normal sinus rhythm with rate 70?80. Troponins down trended, no evidence of fluid overload on physical exam. He is net -500 fluid balance--continue IV Lasix 40 BID for possible new onset CHF. Echo pending, family interested in consulting GI for evaluation of hematemesis. Hemoglobin 13, repleted potassium. PT evaluated patient and suggest discharge to SNF for additional PT. Exam Vital Signs Temp Pulse Resp BP Pulse Ox O2 Del Method O2 Flow Rate 97.3 F 76 19 134/81 H 95 Nasal Cannula 3 05/09/25 12:00 05/09/25 12:00 05/09/25 12:00 05/09/25 12:00 05/09/25 12:00 05/09/25 12:05/09/25 12:00 Narrative Exam General: elderly male, No acute distress, cooperative HEENT: NCAT, No JVD noted. Mucosa dry. Pupils are equal and reactive to light bilaterally Cardiovascular: Normal S1 and S2. Regular rate and rhythm. Respiratory: Lungs are clear to auscultation bilaterally. No wheezing or crackles heard. Abdomen: Soft, nontender, not distended, normal bowel sounds. Skin: Warm to touch, dry, no rashes noted Musculoskeletal: No gross injuries. Able to move all 4 extremities. No pitting edema Neuro: Alert and oriented x3. No focal neuro deficits. Psych: Normal affect and mood Objective Labs 05/10/25 05:35 05/10/25 05:35 Labs: Laboratory Results - last 24 hr 05/08/25 05/08/25 05/09/25 19:21 23:35 04:35 WBC 8.9 12.2 H RBC 4.25 L 4.39 L Hgb 12.5 L 13.0 L Hct 35.9 L 38.0 L MCV 85 87 MCH 29.4 29.6 MCHC 34.8 34.2 RDW Std Deviation 42.5 42.9 Plt Count 263 270 Neut % (Auto) 83 H 87 H Lymph % (Auto) 7 L 6 L [place] % (Auto) 7 6 Eos % (Auto) 2 0 Baso % (Auto) 1 1 Neut # (Auto) 7.3 10.6 H Lymph # (Auto) 0.6 L 0.8 L [place] # (Auto) 0.6 0.7 Eos # (Auto) 0.1 0.0 Baso # (Auto) 0.1 0.1 Immature Gran # (Auto) 0.05 H 0.06 H Absolute Nucleated RBC 0.00 0.00 Immature Gran % 1 H 1 H Nucleated RBC % 0 0 VBG pH 7.52 VBG pCO2 34 L VBG pO2 55 VBG O2 Sat (Nichelle) 92 L VBG Base Excess 5 H Sodium 141 Potassium 3.3 L Chloride 103 Carbon Dioxide 27.4 Anion Gap 11 BUN 13 Creatinine 0.8 Estim Creat Clear Calc Not Performed. eGFR > 60 BUN/Creatinine Ratio [address] Glu mg/dL 137 H Hemoglobin A1c 6.4 H Calculated Osmolality 285 Lactic Acid 1.8 Calcium 8.8 Corrected Calcium 9.0 Total Bilirubin 1.2 ALT < 7 L Alkaline Phosphatase 62 Troponin I 0.087 H* 0.069 H* B-Natriuretic Peptide 2717 H* Total Protein 6.2 Albumin 3.8 Globulin 2.4 Albumin/Globulin Ratio 1.6 Triglycerides 89 Cholesterol 141 LDL Cholesterol, Calc 85 HDL Cholesterol 38 L Cholesterol/HDL Ratio 3.7 L Procalcitonin 0.07 TSH 3.60 Ur Collection Type Urine Color Urine Clarity Urine pH Ur Specific [place] Urine Protein Urine Glucose (UA) Urine Ketones Urine Blood Urine Nitrite Urine Bilirubin Urine Urobilinogen (Auto) Ur Leukocyte Esterase Urine RBC Urine WBC Ur Squamous Epith Cells Urine Bacteria Hyaline Casts 05/09/25 08:00 WBC RBC Hgb Hct MCV MCH MCHC RDW Std Deviation Plt Count Neut % (Auto) Lymph % (Auto) [place] % (Auto) Eos % (Auto) Baso % (Auto) Neut # (Auto) Lymph # (Auto) [place] # (Auto) Eos # (Auto) Baso # (Auto) Immature Gran # (Auto) Absolute Nucleated RBC Immature Gran % Nucleated RBC % VBG pH VBG pCO2 VBG pO2 VBG O2 Sat (Nichelle) VBG Base Excess Sodium Potassium Chloride Carbon Dioxide Anion Gap BUN Creatinine Estim Creat Clear Calc eGFR BUN/Creatinine Ratio Glucose Estimated Ave Glu mg/dL Hemoglobin A1c Calculated Osmolality Lactic Acid Calcium Corrected Calcium Total Bilirubin ALT Alkaline Phosphatase Troponin I B-Natriuretic Peptide Total Protein Albumin Globulin Albumin/Globulin Ratio Triglycerides Cholesterol LDL Cholesterol, Calc HDL Cholesterol Cholesterol/HDL Ratio Procalcitonin TSH Ur Collection Type Clean Catch Urine Color Colorless A Urine Clarity Clear Urine pH 7.5 H Ur Specific [place] 1.006 Urine Protein Negative Urine Glucose (UA) Negative Urine Ketones Negative Urine Blood Negative Urine Nitrite Negative Urine Bilirubin Negative Urine Urobilinogen (Auto) Negative Ur Leukocyte Esterase Negative Urine RBC 2 Urine WBC 1 Ur Squamous Epith Cells 0 Urine Bacteria None Hyaline Casts < 1 ABG Interpretation ABG results: 05/08/25 19:21 VBG pH 7.52 VBG pCO2 34 L VBG pO2 55 VBG Base Excess 5 H Quality Measures Quality Measures none Advance care planning discussed with:: patient and child Assessment & Plan Assessment Current Active Medications: Generic Name Dose Route Start Last Admin Trade Name Freq PRN Reason Stop Dose Admin Acetaminophen 650 mg 05/09/25 09:14 Acetaminophen 325 Mg Tablet PO 06/07/25 23:12 Q6H PRN pain 1-3 OR Fever >100.4 Hydrocodone Bitart/Acetaminophen 1 tab 05/08/25 23:13 Hydrocodone/Apap 5/325 Tablet PO 05/13/25 23:12 Q4HR PRN PAIN SCALE 4-10(Mod-Sev Aspirin 81 mg 05/09/25 09:00 05/09/25 08:53 Aspirin Ec 81 Mg Tabec PO 06/08/25 08:59 81 mg QDAY VLADISLAV Administration Dextrose 25 ml 05/09/25 00:00 Dextrose 50%-Water Inj 50 Ml Syringe IV 06/08/25 00:00 Q15MIN PRN BG 50-70 responsive npo pt Dextrose 50 ml 05/09/25 00:00 Dextrose 50%-Water Inj 50 Ml Syringe IV 06/08/25 00:00 Q15MIN PRN BG <50 OR BG <70 & pt unresponsive Furosemide 40 mg 05/09/25 06:00 05/09/25 05:54 Furosemide Inj 10 Mg/Ml 4ml Vial IVP 06/08/25 05:59 40 mg BIDD VLADISLAV Administration Glucagon 1 mg 05/09/25 00:00 Glucagon Inj 1 Mg Vial IM Q15MIN PRN BG <70, and no IV access Insulin Human Lispro 0 unit 05/09/25 00:00 05/09/25 12:53 Insulin Lispro (Admelog) 1 Unit/0.01 Ml Unit SC 06/08/25 00:00 1 unit Q6H VLADISLAV Administration Protocol Ondansetron HCl 4 mg 05/08/25 23:13 Ondansetron Inj 2 Mg/Ml Inj 2 Ml IVP 06/07/25 23:12 Q6H PRN NAUSEA OR VOMITING Protocol Pantoprazole Sodium 40 mg 05/10/25 09:00 Pantoprazole 40 Mg Tablet PO 06/09/25 08:59 QDAY VLADISLAV Protocol Sertraline HCl 100 mg 05/09/25 21:00 Sertraline Hcl 25 Mg Tablet PO 06/08/25 20:59 HS [facility] Tamsulosin HCl 0.4 mg 05/09/25 09:00 05/09/25 08:54 Tamsulosin Hcl 0.4 Mg Capsule PO 06/08/25 08:59 0.4 mg DAILY VLADISLAV Administration Plan 79-year-old male with past medical history of peripheral neuropathy, depression, and DM2 was admitted to the hospital on 05/08/2025 for new onset acute decompensated heart failure. #Dyspnea 2/2 possible new onset CHF Patient came in with complaints of dyspnea on exertion, no history of HF, no evidence of fluid overload on physical exam. BNP was elevated at 2717 Chest x-ray that shows CHF pattern -Cardiology Dr. Mares consulted, appreciate recs -IV Lasix 40 BID -Echo pending -Daily weights -Strict LAUREN's -Keep potassium magnesium above 4 and 2 respectively #Possible Hematemasis Possible upper GI bleed. One episode occurred per . Stated that it was coffee ground type. Hb 12.5 on admission, 14.4 on 02/20/2025, No active signs of bleeding -GI consult per family request -Protonix 40 daily -daily CBC #Non insulin dependent type 2 diabetes #Peripharl neuropathy On admission initial glucose 172. Last A1c 7.0 on 01/2025. -Held home medications -Bedside blood glucose checks ACHS -Insulin lispro sliding scale -Carb consistent low diet -A1c pending -continue gabapentin 800mg TID #Ground-level fall Patient had a fall today while trying to go to bathroom. was home who tried to help him. Eventually called EMS. Shoulder x-ray negative for fractures, CT head negative. -PT recommends SNF placement for more PT #Troponinemia-resolved Disposition: Patient admitted to telemetry for new onset CHF Diet: NPO pending swallow screen, low carb GI prophylaxis: Protonix DVT prophylaxis: SCDs Code: DNR The patient's management plan was discussed with my attending physician Dr. Acharya. Estela Harris, PGY-1 Attending Provider Attestation/Addendum I have examined the patient, reviewed labs and imaging findings, discussed the case with the resident(s), and reviewed entered orders. I agree with the plan of care as outlined in this note, with these additional summaries/recommendations: Patient and family seen at bedside. Patient admitted overnight for shortness of breath and likely new onset CHF. Chest x-ray showed mild to moderate enlargement cardiac contour with prominent vascular congestion with perihilar edema. Per family he has no previous history of CHF. Echocardiogram ordered. Cardiology consulted, recommendations appreciated. Continue IV Lasix 40 mg twice daily. Will start goal-directed medical therapy if indicated based off echocardiogram results. Net -500 cc thus far. Continue fluid restriction and cardiac diet. Patient was also noted to have ground-level falls at home and pending physical therapy consultation. Patient may require SNF on discharge if indicated. BNP 2717 on admission. Troponin peaked at 0.087 and most likely secondary to demand ischemia. No further trend needed at this time. Mild hypokalemia present and repeat level in AM. Leukocytosis present and most likely reactive, continue to monitor. Patient does appear to have some component of memory impairment and likely has some form of underlying dementia and can follow-up outpatient with neurology as desired. Continue insulin sliding scale for diabetes mellitus type 2 with Accu-Cheks. Target blood sugar of 140-180 while hospitalized. Patient and family updated at bedside. All questions answered to satisfaction. Please see residents note for additional details and management. Dr. Marck MD
--- NOTE | 2025-05-09 14:50 | PC.PT ---
Patient is okay to transfer to the bedside commode with a FWW and 1 staff assist. RN made aware.
--- NOTE | 2025-05-09 15:50 | PC.SS ---
Rounding Note: Plan is to diuresis patient. Cardiology recommendations are pending.
--- NOTE | 2025-05-09 19:48 | PD.IMCONS ---
HPI Data of Consult Requesting Physician: Ryan Acharya MD Primary Care Provider: Physician No Primary/Family Consult Narrative Reason for consult: Hematemesis and drop in hemoglobin hematocrit History of present illness: 79 years old male I been consulted for dark emesis most likely hematemesis and a drop in hemoglobin hematocrit He was brought into the emergency room with altered mental status and his found him on the floor and then called the EMS By the time he got to the emergency room got him IV fluids he became alert and oriented x 3 Patient has a history of diabetes mellitus with peripheral neuropathy and depression and has had some cough and has been taking a lot of Robitussin Patient currently not on any blood thinners cc:: cc: Ryan Acharya MD Review of Systems Review of Systems Systems Reviewed: All systems reviewed, normal except as documented Past Medical History Surgical History OTHER SURGICAL HX: As in history of present illness Meds Home Medications and Allergies Home Medications ?Medication ?Instructions ?Recorded ?Confirmed ?Type bupropion HCl 150 mg tablet,12 hr 150 mg PO BID 05/09/25 05/09/25 History sustained-release fluticasone propionate 50 1 spray intranasal QDAY PRN nasal 05/09/25 05/09/25 History mcg/actuation nasal congestion spray,suspension gabapentin 800 mg tablet 800 mg PO TID 05/09/25 05/09/25 History pantoprazole 40 mg tablet,delayed 40 mg PO DAILY 05/09/25 05/09/25 History release sertraline 100 mg tablet 100 mg PO HS 05/09/25 05/09/25 History tamsulosin 0.4 mg capsule 0.4 mg PO DAILY 05/09/25 05/09/25 History Allergies Allergy/AdvReac Type Severity Reaction Status Date / Time No Known Allergies Allergy Verified 05/08/25 19:03 Exam Vital Signs Temp Pulse Resp BP Pulse Ox O2 Del Method O2 Flow Rate 97.0 F 77 23 H 142/81 H 92 L Room Air 3 05/09/25 16:00 05/09/25 17:58 05/09/25 16:00 05/09/25 17:58 05/09/25 16:00 05/09/25 16:00 05/09/25 12:00 Constitutional Comments: Alert oriented chronically sick appearing Routine Respiratory Exam Comments: Normal to auscultation Routine Abdominal Exam Comments: Soft nontender Results Labs 05/10/25 05:35 05/10/25 05:35 Labs: Short CBC 05/09/25 Range/Units 04:35 WBC 12.2 H (3.8-10.6) Thou/mm3 Hgb 13.0 L (13.5-16.0) g/dL Hct 38.0 L (41.0-53.0) % Plt Count 270 (140-440) Thou/mm3 BMP 05/08/25 19:21 Sodium 141 Potassium 3.3 L Chloride 103 Carbon Dioxide 27.4 BUN 13 Creatinine 0.8 Glucose 172 H Calcium 8.8 Cardiac Enzymes 05/08/25 05/08/25 Range/Units 19:21 23:35 Troponin I 0.087 H* 0.069 H* (0.0-0.045) ng/mL Liver Function 05/08/25 Range/Units 19:21 Total Bilirubin 1.2 (0.3-1.2) mg/dL ALT < 7 L (10-49) U/L Alkaline Phosphatase 62 (46-116) U/L Albumin 3.8 (3.4-4.8) gm/dL Urine 05/09/25 Range/Units 08:00 Urine Color Colorless A (Lt Yel-Yel) Urine Clarity Clear (Clear/Hazy) Urine pH 7.5 H (5.0-7.0) Ur Specific Gepp 1.006 (1.001-1.035) Urine Protein Negative (Neg - Trace) Urine Glucose (UA) Negative (Negative) ABG Interpretation ABG results: 05/08/25 19:21 VBG pH 7.52 VBG pCO2 34 L VBG pO2 55 VBG Base Excess 5 H Assessment and Plan Additional Assessment & Plan Additional Plan: # Hematemesis # Drop in hemoglobin hematocrit Plan Fiberoptic esophagogastroduodenoscopy with possible biopsy possible therapeutic intervention under intravenous moderate sedation Consent obtained and the procedure has been scheduled Other medical problems include # Diabetes mellitus with peripheral neuropathy # Recent fall Thank you very much for the opportunity to participate in the care of this patient
[2025-05-09] MEDS: SERTRALINE HCL 25 MG TABLET 100 MG PO (20:22)
--- NOTE | 2025-05-09 23:15 | ECHO_ITS ---
Transthoracic Echo Report Ht (in): 64 Wt (lb): 162 Exam Location: Echo Lab Status: Inpatient Enrober: Bruna Lou Indications: Procedure Performed: BP: 145 / 83 HR: 72 Technical Quality: Adequate MEASUREMENTS (Male / Female) Normal Values 2D ECHO LV Diastolic Diameter PLAX 5.3 cm 4.2 - 5.9 / 3.9 - 5.3 cm LV Systolic Diameter PLAX 4.0 cm IVS Diastolic Thickness 1.2 cm 0.6 - 1.0 / 0.6 - 0.9 cm LVPW Diastolic Thickness 1.2 cm 0.6 - 1.0 / 0.6 - 0.9 cm LV Relative Wall Thickness 0.5 LVOT Diameter 2.9 cm LA Volume Index 75.0 cm?/m? 16 - 28 cm?/m? Ascending Aorta Diameter 2.8 cm DOPPLER AV Peak Velocity 197.0 cm/s AV Peak Gradient 15.5 mmHg AV Mean Gradient 8.0 mmHg AV Velocity Time Integral 37.6 cm LVOT Peak Velocity 101.0 cm/s LVOT Peak Gradient 4.1 mmHg LVOT Velocity Time Integral 18.8 cm LVOT Cardiac Index 4856.5 cm?/min?m? AV Area Cont Eq vti 3.3 cm? AV Area Cont Eq pk 3.4 cm? MV Area PHT 3.5 cm? MR Peak Velocity 458.0 cm/s MR Peak Gradient 83.9 mmHg Mitral E Point Velocity 92.2 cm/s Mitral A Point Velocity 52.9 cm/s Mitral E to A Ratio 1.7 LV E' Lateral Velocity 8.1 cm/s Mitral E to LV E' Lateral Ratio 11.5 LV E' Septal Velocity 3.5 cm/s Mitral E to LV E' Septal Ratio 26.5 PV Peak Velocity 81.4 cm/s PV Peak Gradient 2.7 mmHg FINDINGS Left Ventricle Normal left ventricular size with mild hypterophy. Global left ventricular systolic function is moderately decreased with an estimated ejection fraction of 40-45%. Grade I diastolic dysfunction. Right Ventricle The right ventricle is normal in size and systolic function. The estimated right ventricular systolic pressure, 15 mmHg. Left Atrium The left atrium is severely dilated. Right Atrium The right atrium is severely dilated. Atrial Septum The interatrial septum appears normal with no evidence of a shunt. Aorta The aorta is normal by two-dimensional, color flow and Doppler interrogation. Mitral Valve The mitral valve is normal by two-dimensional, color flow and Doppler interrogation. There is mild mitral regurgitation. Aortic Valve The aortic valve is trileaflet and moderate to severely calcified. There is trace aortic regurgitation. No evidence of stenosis. Tricuspid Valve The tricuspid valve is normal by two-dimensional, color flow and Doppler interrogation. There is trace tricuspid regurgitation. Pulmonic Valve The pulmonic valve is not well visualized. There is no significant pulmonic valve regurgitation. Vessels The pulmonary artery appears normal. The inferior vena cava is dilated with poor inspiratory collapse. Pericardium The pericardium is normal by two-dimensional imaging. There is no significant pericardial effusion. CONCLUSIONS Indications: New Onset CHF Normal LV size with mildly decreased LV function. Estimated EF of 40 to 45%. Grade 2 diastolic dysfunction. Normal RV size and function. RVSP could not be estimated because of the trace TR. Massively dilated LA as well as mildly dilated RA. Moderate to severe calcification of aortic valve. Velocity is probably underestimated and possible mild aortic stenosis Mild MAC. Mild MR trace AI and trace TR. Dilated IVC. No pericardial effusion. Remi Mares (Electronically Signed) Final Date: 09 May 2025 20:13
[2025-05-10] VITALS (20 sets, daily range): BP systolic 121–154; BP diastolic 55–97; PULSE 54–76; RESP 12–30; TEMP 35.9–37; O2SAT 93–97; BMI 28.1
[2025-05-10] MEDS: FUROSEMIDE INJ 10 MG/ML 4ML VIAL 40 MG IVP (05:16)
[2025-05-10 06:28] LABS: Basophils # (Auto) 0.1 Thou/mm3 (0.0-0.2); Basophils % (Auto) 1 % (0-2.5); Eosinophils # (Auto) 0.7 Thou/mm3 (0.0-0.5); Eosinophils % (Auto) 6 % (0-10); Hematocrit 39.1 % (41.0-53.0); Hemoglobin 13.1 g/dL (13.5-16.0); Immature Granulocytes % (Auto) 1 % (0-0); Immature Granulocytes Auto 0.05 Thou/mm3 (0.00-0.00); Lymphocytes # (Auto) 1.6 Thou/mm3 (1.0-4.8); Lymphocytes % (Auto) 15 % (10-50); Mean Corpuscular HGB Conc 33.5 g/dl (31.0-37.0); Mean Corpuscular Hemoglobin 30.3 pg (25.0-35.0); Mean Corpuscular Volume 90 fL (80-100); Monocytes # (Auto) 0.9 Thou/mm3 (0.0-0.8); Monocytes % (Auto) 8 % (0-12); Neutrophils # (Auto) 7.5 Thou/mm3 (1.8-7.7); Neutrophils % (Auto) 70 % (37-80); Nucleated Red Blood Cell % 0 /100 WBC (0); Platelet Count 254 Thou/mm3 (140-440); RDW Standard Deviation 45.8 fL (35.1-43.9); Red Blood Count 4.33 Miln/mm3 (4.50-5.90); White Blood Count 10.7 Thou/mm3 (3.8-10.6)
[2025-05-10 06:58] LABS: Alanine Aminotransferase 8 U/L (10-49); Albumin, Serum 3.9 gm/dL (3.4-4.8); Albumin/Globulin Ratio 1.6 (1.2-2.2); Alkaline Phosphatase 61 U/L (46-116); Anion Gap 12 (7-16); BUN/Creatinine Ratio 15 Ratio (12-20); Bilirubin,Total 0.9 mg/dL (0.3-1.2); Blood Urea Nitrogen 15 mg/dL (9-23); Calcium 8.4 mg/dL (8.3-10.6); Calcium (Corrected) 8.5 mg/dL (8.5-10.1); Carbon Dioxide 31.8 mMol/L (20.0-31.0); Chloride 101 mMol/L (98-107); Estimated Creatinine Clearance 54.4 mL/min (>60); Globulin 2.5 gm/dL (2.3-3.5); Glucose 112 mg/dL (74-106); Magnesium 1.7 mg/dL (1.6-2.6); Osmolality,Calculated 290 (275-295); Potassium 3.3 mMol/L (3.4-5.1); Sodium 145 mMol/L (136-145); Total Protein 6.4 gm/dL (5.7-8.2); eGFR > 60 See Note
[2025-05-10] MEDS: Magnesium Sulfate 2 GM Ivpb 2 GM/50 ML BAG IV (08:00)
[2025-05-10] MEDS: POTASSIUM CHLORIDE 20 mEq TABCR 40 MEQ PO (08:00)
[2025-05-10] MEDS: ASPIRIN EC 81 MG TABEC PO (08:01)
[2025-05-10] MEDS: PANTOPRAZOLE 40 MG TABLET PO (08:01)
[2025-05-10] MEDS: METOPROLOL SUCCINATE XL 25 MG TABCR PO (08:01)
[2025-05-10] MEDS: TAMSULOSIN HCL 0.4 MG CAPSULE PO (08:01)
[2025-05-10] MEDS: POTASSIUM CHLORIDE 20 mEq TABCR PO (08:01)
[2025-05-10] MEDS: DAPAGLIFLOZIN PROPANEDIOL 5 MG TABLET 10 MG PO (08:14)
--- NOTE | 2025-05-10 08:55 | PC.SS ---
EGG PASTEURIZER conducted bedside contact with the patient conduct initial assessment and to discuss discharge planning.? At bedside with patient was spouse, Melissa Humphreys .? Information obtained from spouse.? Patient utilizes a walker to assist with ambulation.? Patient does not utilize home oxygen.? Patient requires assistance with the completion of ADL?s.? Spouse assists patient with completion of ADL?s.? Patient?s surrogate medical decision maker is spouse, Melissa Humphreys.? Patient?s PCP is Morris Bowman.? Patient does not possess any specialty providers.? Patient does not participate with dialysis.? Patient utilizes [facility] for medication services.? Discharge plan is for the patient to transition to SNF.? Preferred SNF is [facility].? Spouse informed that authorization will need to be obtained in order to transition to SNF.? Patient possesses a history of depression.? Patient prescribed Zoloft and Buspar.? Patient does not possess coverage for transportation.? teleservices representative to arrange transportation on behalf of the patient. ?No further discharge needs identified by the patient.? No further intervention required at this time, dialysis social worker will be available to address any further concerns.? Next of Kin: Luis Humphreys D/C Plan: SNF
--- NOTE | 2025-05-10 09:04 | PC.SS ---
SNF referral submitted on [facility]. Results are pending. Clarissa Cardenas preferred SNF.
--- NOTE | 2025-05-10 09:11 | PC.SS ---
PASSR completed. Patient meets Level II criteria. PASSR follow up pending.
--- NOTE | 2025-05-10 09:20 | PC.SS ---
LAB ANIMAL TECHNICIAN confirmed with [facility] that facility will accept patient for placement. LAB ANIMAL TECHNICIAN contacted [facility] to request initiation of authorization. LAB ANIMAL TECHNICIAN left voice mail with [facility] staff requesting authorization. LAB ANIMAL TECHNICIAN left message requesting return call to confirm request.
--- NOTE | 2025-05-10 11:08 | PC.SS ---
BUTTON SEWER HAND fielded phone call from [facility] staff confirming that authorization will be obtained for SNF placement to [facility].
--- NOTE | 2025-05-10 11:09 | PC.SS ---
FLAGGER received phone call from [facility] staff, Sweetie Wood; informing FLAGGER need to obtain confirmation that patient is not in possession of the flu. SNF concern based on patient in possession of a cough and receiving tansulosin medication. FLAGGER updated bedside nurse. Nurse to follow up with medical team on request.
--- NOTE | 2025-05-10 11:58 | PC.SS ---
Flu results submitted to [facility] via [facility]. Flu results are negative.
--- NOTE | 2025-05-10 13:58 | ESPR_ITS ---
Documentation for date of: 05/10/25 Subjective Subjective Interval history: Patient is an 79-year-old male with a past medical history of diabetes mellitus type 2 [id number] (no medication on board/initially on metformin but DC'd after weight loss), peripheral neuropathy, history of depression, and BPH who presented to the emergency room with increasing shortness of breath and concern for a mechanical level mechanical fall. Patient stated requires pillows to sleep at night (positive orthopnea), denied paroxysmal nocturnal dyspnea, lower peripheral edema gradually increasing over the last 15 years. Patient experiences shortness of breath upon ambulation, per , patient can only take about 45 steps and then experiences shortness of breath. Patient has never followed up with a inside sales professional. Patient was set to establish primary care this week with Dr. Bowman. Concern for mechanical fall that occurred in the restroom. Patient stated he lost his balance as he was turning with his walker. Patient denied tripping on a rug or on his feet and to clear of any obstructions. Patient denied seizure-like activity. Patient denied losing consciousness. Patient denied head trauma. Patient denied dizziness or syncopal event. Per at bedside, patient has been having increasing problems with short-term memory and balance. Patient denied any chest pain or pressure. Denied nasuea or diaphoresis. Denied any recent sick contacts. 05/09/2025: Overnight admission. Cardiology Consulted for new onset of CHF. Patient examined at bedside, per chart review, edema on admission, this morning trace edema. Reduce Lasix from 40 mg BID to lasix 40 mg IVP Qday. Introduce Metoprolol Succinate 25 mg qday, blood pressure permitting. 05/10/2025: No ovenright events. Pateint examined at bedside and found only with trace edema. Patient stated improved SOB even when laying in a supine position. Patient denied chest pain or palpitations. Transisiton patinet to oral lasix 40 mg PO and continue Metoprolol. Dapagliflozin started by primary team. Exam Vital Signs Temp Pulse Resp BP Pulse Ox O2 Del Method O2 Flow Rate 97.0 F 60 18 121/55 L 93 L Room Air 3 05/10/25 12:00 05/10/25 12:00 05/10/25 12:05/10/25 12:05/10/25 12:05/10/25 12:05/10/25 08:20 Narrative Exam General Appearance: Alert & Oriented X2, well-nourished male who is lying in bed in no acute distress HEENT: Skull symmetrical and atraumatic. Conjunctivae pale pink and moist. Pupils equal, round, reactive to light and accommodation (PERRL). External ear without lesion or discharge. Cardio: Normal Rate and Rhythm with S1 and S2 heart sounds. Faint systolic murmur. No bruits on carotid auscultation. Trace edema. Lungs: Symmetric with good expansion. Chest and back non-tender. Breath sounds vesicular without crackles, wheezing or rhonchi Abdomen: Non-tender, Non-distended, Normal Reactive Bowel Sounds Neuro: Alert, cooperative, oriented to person, place, and NO time. Speech clear. CN grossly intact. Upper motor strength 5/5 and Lower motor strength 5/5. Sensation intact. Objective Labs 05/10/25 05:35 05/10/25 05:35 Labs: Laboratory Results - last 24 hr 05/10/25 05:35 WBC 10.7 H RBC 4.33 L Hgb 13.1 L Hct 39.1 L MCV 90 MCH 30.3 MCHC 33.5 RDW Std Deviation 45.8 H Plt Count 254 Neut % (Auto) 70 Lymph % (Auto) 15 Menard % (Auto) 8 Eos % (Auto) 6 Baso % (Auto) 1 Neut # (Auto) 7.5 Lymph # (Auto) 1.6 Menard # (Auto) 0.9 H Eos # (Auto) 0.7 H Baso # (Auto) 0.1 Immature Gran # (Auto) 0.05 H Absolute Nucleated RBC 0.00 Immature Gran % 1 H Nucleated RBC % 0 Sodium 145 Potassium 3.3 L Chloride 101 Carbon Dioxide 31.8 H Anion Gap 12 BUN 15 Creatinine 1.0 Estim Creat Clear Calc 54.4 L eGFR > 60 BUN/Creatinine Ratio 15 Glucose 112 H D Calculated Osmolality 290 Calcium 8.4 Corrected Calcium 8.5 Magnesium 1.7 Total Bilirubin 0.9 ALT 8 L Alkaline Phosphatase 61 Total Protein 6.4 Albumin 3.9 Globulin 2.5 Albumin/Globulin Ratio 1.6 ABG Interpretation ABG results: 05/08/25 19:21 VBG pH 7.52 VBG pCO2 34 L VBG pO2 55 VBG Base Excess 5 H Quality Measures Quality Measures none Advance care planning discussed with:: patient Assessment & Plan Assessment Current Active Medications: Generic Name Dose Route Start Last Admin Trade Name Freq PRN Reason Stop Dose Admin Acetaminophen 650 mg 05/09/25 09:14 Acetaminophen 325 Mg Tablet PO 06/07/25 23:12 Q6H PRN pain 1-3 OR Fever >100.4 Hydrocodone Bitart/Acetaminophen 1 tab 05/08/25 23:13 Hydrocodone/Apap 5/325 Tablet PO 05/13/25 23:12 Q4HR PRN PAIN SCALE 4-10(Mod-Sev Aspirin 81 mg 05/09/25 09:00 05/10/25 08:01 Aspirin Ec 81 Mg Tabec PO 06/08/25 08:59 81 mg QDAY VLADISLAV Administration Dapagliflozin 10 mg 05/10/25 09:00 05/10/25 08:14 Dapagliflozin Propanediol 5 Mg Tablet PO 06/09/25 08:59 10 mg QAM VLADISLAV Administration Dextrose 25 ml 05/09/25 00:00 Dextrose 50%-Water Inj 50 Ml Syringe IV 06/08/25 00:00 Q15MIN PRN BG 50-70 responsive npo pt Dextrose 50 ml 05/09/25 00:00 Dextrose 50%-Water Inj 50 Ml Syringe IV 06/08/25 00:00 Q15MIN PRN BG <50 OR BG <70 & pt unresponsive Furosemide 40 mg 05/11/25 09:00 Furosemide Inj 10 Mg/Ml 4ml Vial IVP 06/10/25 08:59 QDAY VLADISLAV Glucagon 1 mg 05/09/25 00:00 Glucagon Inj 1 Mg Vial IM Q15MIN PRN BG <70, and no IV access Insulin Human Lispro 0 unit 05/09/25 00:00 05/10/25 05:13 Insulin Lispro (Admelog) 1 Unit/0.01 Ml Unit SC 06/08/25 00:00 Not Given Q6H VLADISLAV Protocol Metoprolol Succinate 25 mg 05/10/25 09:00 05/10/25 08:01 Metoprolol Succinate Xl 25 Mg Tabcr PO 06/09/25 08:59 25 mg QDAY VLADISLAV Administration Ondansetron HCl 4 mg 05/08/25 23:13 Ondansetron Inj 2 Mg/Ml Inj 2 Ml IVP 06/07/25 23:12 Q6H PRN NAUSEA OR VOMITING Protocol Pantoprazole Sodium 40 mg 05/10/25 09:00 06/12/25 08:01 Pantoprazole 40 Mg Tablet PO 06/09/25 08:59 40 mg QDAY VLADISLAV Administration Protocol Sertraline HCl 100 mg 05/09/25 21:00 05/09/25 20:22 Sertraline Hcl 25 Mg Tablet PO 06/08/25 20:59 100 mg HS VLADISLAV Administration Tamsulosin HCl 0.4 mg 05/09/25 09:00 05/10/25 08:01 Tamsulosin Hcl 0.4 Mg Capsule PO 06/08/25 08:59 0.4 mg DAILY VLADISLAV Administration Plan Patient is an 79-year-old male with a past medical history of diabetes mellitus type 2 [id number] (no medication on board/initially on metformin but DC'd after weight loss), peripheral neuropathy, history of depression, and BPH who was admitted for new onset of CHF and mechanical ground level. Cardiology Consulted for new onset of CHF. # Acute combined systolic and diastolic congestive heart failure - will eventually need to rule out ischemic etiology too #CHF HFrEF 40%-45% (05/09/2025) #Grade 2 Diastolic Dysfunction Likely CHF progressive, as patient has had peripheral edema for the past 10 years, recently worsening over the last couple months, positive orthopnea, dyspnea on ambulation, negative PND. CHF exacerbation likely the setting of cardiomypoathy and unknown etiology for now. Echo ordered. Monitor output. 05/09/2025: Output not tracked, fluid restricted to 2000 ml 05/10/2025: [id number]/[id number] Echo (05/08/2025): Normal LV size with mildly decreased LV function. Estimated EF of 40 to 45%. Grade 2 diastolic dysfunction.Normal RV size and function. RVSP could not be estimated because of the trace TR. Massively dilated LA as well as mildly dilated RA. Moderate to severe calcification of aortic valve. Velocity is probably underestimated and possible mild aortic stenosis. Mild MAC. Mild MR trace AI and trace TR. Dilated IVC. No pericardial effusion. Cxr: noted for prominent vascular congestion & cardiac enlargement EKG:V1 and V 2 r wave Anteriolateral leads noted for hypertrophy, NO ST elvation noted, non specific ST changes. QRS 110, QTC 458 Lipid Panel: Triglycerides 89, Cholesterol 141, LDL 85, HDL 38 A1c 6.4% TSH 3.60 NYHA Class: III ASCVD: non applicable given age, consider adding Atorvastatin non the less Plan: -Metoprolol XL 25 mg qday -Lasix 40 mg IV qday-->transition patient to oral Lasix 40 mg PO -Dapagliflozin 10 mg PO qday, started by primary team -Work towards GDMT, likely benefit from Entresto if BP permissible. Can be done as outpatient too. -Eventually spirinolactone if renal function stable. -repeat BNP prior to discharge -K>4 and Mg >2 -Fluid Restriction (1999) and Sodium Restriction 2 g per day -SpO <90%, support PRN -will eventually need to rule out ischemic etiology too. Continue work up as outpt #Ground-Level Fall #Peripheral Neuropathy Ground level fall likely in the setting of CHF and lower peripheral edema vs pre-syncopal event, such as orthostatic pressure vs TIA, no slurred speech/No loss of motor funciton vs less likely secondary to seizure. CT head negative. Plan -Treat CHF -PT -Consider B12/Folic and Thiamine levels, likely outpatinet -Consider Orthostatic Vitals -Patient would likely benefit of outpatient neurology given concern short term memory problems and possible neuropathy vs gait -Primary team holding gabapentin, patient denied pain. #Diabetes Mellitus Type type 2, non insulin dependent Past medical history of diabetes, non medication listed during admission, per at bedside, previously on Metformin A1c (05/09/2025): 6.4% Plan -Sliding Scale -Monitor Fasting Glucose -carb consistent low #Rule out upper GI Bleed #Microcytic Anemia Patient has a past medical history of esophageal stricter sp dilation. Patient denied dysphagia. Given reported coffee ground emesis, GI consuled. Hgb 13 hct 38.0 mcv 87 Plan -Consider iron panel /Ferritin -GI Consulted #Depression home medication Sertraline and buspirone for depression vs dementia Plan: -Sertraline 100 mg PO HS resumed Health Maintenance: Disp: Pt is currently admitted to floors for further management of CHF and mechanical fall, Cardiology consulted for CHF. FEN: Cardiac DVT: on subQ heparin 8 HR Code: DNR - The patient's plan was discussed with attending Dr. Suzan Cavazos MD PGY1 Internal Medicine Attending Provider Attestation/Addendum I have personally seen and examined the patient separately on the above date of service and discussed the plan of care with the resident. I reviewed the resident Dr. Adelia Cavazos consultation progress note and agree with the resident findings and plan in the note above and have also edited the documentation to reflect my findings and plan. Remi Mares M.D. Interventional Cardiology
--- NOTE | 2025-05-10 14:48 | PD.RESPRO ---
Documentation for date of: 05/10/25 Subjective Subjective Interval history: Patient examined at bedside. No events overnight, no major complaints. Vitals are stable, leukocytosis improved, hemoglobin stable 13. Potassium 3.3 repleted with 40M EQ. Patient n.p.o. for EGD this afternoon. He has had no additional episodes of hematemesis since admission. Good urine output -2.4 L fluid balance past 24 hours. No evidence of fluid overload on physical exam. Echo showed EF 40-45%. Transition to p.o. Lasix 40 daily and start patient on metoprolol XL 25 Mg daily if BP permissible. Will slowly start patient on GDMT for his HFrEF. Family is agreeable for discharge to SNF for additional PT. Anticipate discharge in next 24 hours. Exam Vital Signs Temp Pulse Resp BP Pulse Ox O2 Del Method O2 Flow Rate 97.0 F 60 18 121/55 L 93 L Room Air 3 05/10/25 12:00 05/10/25 12:00 05/10/25 12:00 05/10/25 12:00 05/10/25 12:00 05/10/25 12:00 05/10/25 08:20 Narrative Exam General: elderly male, No acute distress, cooperative HEENT: NCAT, No JVD noted. Mucosa dry. Pupils are equal and reactive to light bilaterally Cardiovascular: Normal S1 and S2. Regular rate and rhythm. Respiratory: Lungs are clear to auscultation bilaterally. No wheezing or crackles heard. Abdomen: Soft, nontender, not distended, normal bowel sounds. Skin: Warm to touch, dry, no rashes noted Musculoskeletal: No gross injuries. Able to move all 4 extremities. No pitting edema Neuro: Alert and oriented x3. No focal neuro deficits. Psych: Normal affect and mood Objective Labs 05/11/25 04:47 05/11/25 04:47 Labs: Laboratory Results - last 24 hr 05/10/25 05:35 WBC 10.7 H RBC 4.33 L Hgb 13.1 L Hct 39.1 L MCV 90 MCH 30.3 MCHC 33.5 RDW Std Deviation 45.8 H Plt Count 254 Neut % (Auto) 70 Lymph % (Auto) 15 [place] % (Auto) 8 Eos % (Auto) 6 Baso % (Auto) 1 Neut # (Auto) 7.5 Lymph # (Auto) 1.6 [place] # (Auto) 0.9 H Eos # (Auto) 0.7 H Baso # (Auto) 0.1 Immature Gran # (Auto) 0.05 H Absolute Nucleated RBC 0.00 Immature Gran % 1 H Nucleated RBC % 0 Sodium 145 Potassium 3.3 L Chloride 101 Carbon Dioxide 31.8 H Anion Gap 12 BUN 15 Creatinine 1.0 Estim Creat Clear Calc 54.4 L eGFR > 60 BUN/Creatinine Ratio 15 Glucose 112 H D Calculated Osmolality 290 Calcium 8.4 Corrected Calcium 8.5 Magnesium 1.7 Total Bilirubin 0.9 ALT 8 L Alkaline Phosphatase 61 Total Protein 6.4 Albumin 3.9 Globulin 2.5 Albumin/Globulin Ratio 1.6 ABG Interpretation ABG results: 05/08/25 19:21 VBG pH 7.52 VBG pCO2 34 L VBG pO2 55 VBG Base Excess 5 H Quality Measures Quality Measures none Advance care planning discussed with:: patient Assessment & Plan Assessment Current Active Medications: Generic Name Dose Route Start Last Admin Trade Name Freq PRN Reason Stop Dose Admin Acetaminophen 650 mg 05/09/25 09:14 Acetaminophen 325 Mg Tablet PO 06/07/25 23:12 Q6H PRN pain 1-3 OR Fever >100.4 Hydrocodone Bitart/Acetaminophen 1 tab 05/08/25 23:13 Hydrocodone/Apap 5/325 Tablet PO 05/13/25 23:12 Q4HR PRN PAIN SCALE 4-10(Mod-Sev Aspirin 81 mg 05/09/25 09:00 05/10/25 08:01 Aspirin Ec 81 Mg Tabec PO 06/08/25 08:59 81 mg QDAY VLADISLAV Administration Dapagliflozin 10 mg 05/10/25 09:00 05/10/25 08:14 Dapagliflozin Propanediol 5 Mg Tablet PO 06/09/25 08:59 10 mg QAM VLADISLAV Administration Dextrose 25 ml 05/09/25 00:00 Dextrose 50%-Water Inj 50 Ml Syringe IV 06/08/25 00:00 Q15MIN PRN BG 50-70 responsive npo pt Dextrose 50 ml 05/09/25 00:00 Dextrose 50%-Water Inj 50 Ml Syringe IV 06/08/25 00:00 Q15MIN PRN BG <50 OR BG <70 & pt unresponsive Furosemide 40 mg 05/11/25 09:00 Furosemide Inj 10 Mg/Ml 4ml Vial IVP 06/10/25 08:59 QDAY VLADISLAV Glucagon 1 mg 05/09/25 00:00 Glucagon Inj 1 Mg Vial IM Q15MIN PRN BG <70, and no IV access Insulin Human Lispro 0 unit 05/09/25 00:00 05/10/25 05:13 Insulin Lispro (Admelog) 1 Unit/0.01 Ml Unit SC 06/08/25 00:00 Not Given Q6H VLADISLAV Protocol Metoprolol Succinate 25 mg 05/10/25 09:00 05/10/25 08:01 Metoprolol Succinate Xl 25 Mg Tabcr PO 06/09/25 08:59 25 mg QDAY VLADISLAV Administration Ondansetron HCl 4 mg 05/08/25 23:13 Ondansetron Inj 2 Mg/Ml Inj 2 Ml IVP 06/07/25 23:12 Q6H PRN NAUSEA OR VOMITING Protocol Pantoprazole Sodium 40 mg 05/10/25 09:00 05/10/25 08:01 Pantoprazole 40 Mg Tablet PO 06/09/25 08:59 40 mg QDAY VLADISLAV Administration Protocol Sertraline HCl 100 mg 05/09/25 21:00 05/09/25 20:22 Sertraline Hcl 25 Mg Tablet PO 06/08/25 20:59 100 mg HS VLADISLAV Administration Tamsulosin HCl 0.4 mg 05/09/25 09:00 05/10/25 08:01 Tamsulosin Hcl 0.4 Mg Capsule PO 06/08/25 08:59 0.4 mg DAILY VLADISLAV Administration Plan 79-year-old male with past medical history of peripheral neuropathy, depression, and DM2 was admitted to the hospital on 05/08/2025 for new onset acute decompensated heart failure. #Dyspnea 2/2 new onset HFrEF (EF 40-45%) #Acute combined systolic and diastolic CHF Patient came in with complaints of dyspnea on exertion, no history of HF, no evidence of fluid overload on physical exam. BNP was elevated at 2717 Chest x-ray that shows CHF pattern Echo (05/08/2025): Normal LV size with mildly decreased LV function. Estimated EF of 40 to 45%. Grade 2 diastolic dysfunction.Normal RV size and function. RVSP could not be estimated because of the trace TR. Massively dilated LA as well as mildly dilated RA. Moderate to severe calcification of aortic valve. -Cardiology Dr. Anumandla consulted, appreciate recs - Transition to p.o. Lasix 40 daily -Start p.o. metoprolol 25 XL daily -Start patient on Entresto at discharge ? Follow-up with cardiology outpatient in 1-2 weeks. -Daily weights -Strict LAUREN's -Keep potassium magnesium above 4 and 2 respectively -repeated BNP before dc #Possible Hematemasis Possible upper GI bleed. One episode occurred per . Stated that it was coffee ground type. Hb 12.5 on admission, 14.4 on 02/20/2025, No active signs of bleeding -GI consult per family request -Pending EGD -Protonix 40 daily -daily CBC #Non insulin dependent type 2 diabetes, well controlled #Peripharl neuropathy On admission initial glucose 172. Last A1c 7.0 on 01/2025. On this admisison, 6.4 -Held home medications -Bedside blood glucose checks ACHS -Insulin lispro sliding scale -Carb consistent low diet -continue gabapentin 800mg TID #Ground-level fall Patient had a fall today while trying to go to bathroom. was home who tried to help him. Eventually called EMS. Shoulder x-ray negative for fractures, CT head negative. -PT recommends SNF placement for more PT #Troponinemia-resolved Disposition: tele for CHF, EGD pending, dc to SNF for PT Diet: NPO GI prophylaxis: Protonix DVT prophylaxis: SCDs Code: DNR The patient's management plan was discussed with my attending physician Dr. Acharya. Estela Harris, PGY-1 Attending Provider Attestation/Addendum I have examined the patient, reviewed labs and imaging findings, discussed the case with the resident(s), and reviewed entered orders. I agree with the plan of care as outlined in this note, with these additional summaries/recommendations: Patient and family seen at bedside. No acute overnight events. Patient admitted for new onset CHF exacerbation. Chest x-ray showed mild to moderate enlargement cardiac contour with prominent vascular congestion with perihilar edema. Per family he has no previous history of CHF. Echocardiogram showed HFmEF with EF 40-45%, largerly dilated LA and moderate/severe calcification of aortic valve.. Cardiology consulted, recommendations appreciated. Decrease IV Lasix to 40 mg QD. Patient now net negative >2L. Continue to initiate goal-directed medical therapy. Continue fluid restriction and cardiac diet. Patient was also noted to have ground-level falls at home and was seen by physical therapy who recommends SNF placement and patient in agreement. BNP 2717 on admission. Troponin peaked at 0.087 and most likely secondary to demand ischemia. No further trend needed at this time. Leukocytosis present and most likely reactive, continue to monitor. Patient does appear to have some component of memory impairment and likely has some form of underlying dementia and can follow-up outpatient with neurology as desired. Continue insulin sliding scale for diabetes mellitus type 2 with Accu-Cheks. Target blood sugar of 140-180 while hospitalized. Patient and family updated at bedside. All questions answered to satisfaction. Please see residents note for additional details and management. Dr. Marck MD
--- NOTE | 2025-05-10 14:54 | PC.SS ---
Rounding Note: EGD is pending. [facility] authorization has been obtained.
--- NOTE | 2025-05-10 20:35 | SUR.PHASEI ---
Pt. arrived to recovery via [place], eyes opened, responds to verbal commands, VSS, lung sounds clear, diminished at bases, pt. receiving 02 4 liters via ID. Report received from Paulette HOLLOWAY.
--- NOTE | 2025-05-10 21:04 | SUR.PHASEI ---
Called and gave report s/p procedure to Cailin HOLLOWAY on telemetry.
--- NOTE | 2025-05-10 21:15 | SUR.PHASEI ---
Pt. transferred to room 268 via [facility] [place], no c/o pain or nausea at this time, IV flushed and Cailin powell RN assumed care of pt.
[2025-05-10] MEDS: PANTOPRAZOLE INJ 40 MG VIAL IVP (21:20)
[2025-05-10] MEDS: SERTRALINE HCL 25 MG TABLET 100 MG PO (21:20)
[2025-05-11] VITALS: BP 129/80; PULSE 63; PULSE 65; RESP 16; TEMP 36.2; O2SAT 95
[2025-05-11 04:00] VITALS: BP 126/70; PULSE 54; RESP 16; TEMP 36; O2SAT 98
[2025-05-11 05:03] VITALS: BMI 26.6
[2025-05-11 05:43] LABS: Basophils # (Auto) 0.2 Thou/mm3 (0.0-0.2); Basophils % (Auto) 1 % (0-2.5); Eosinophils # (Auto) 0.6 Thou/mm3 (0.0-0.5); Eosinophils % (Auto) 5 % (0-10); Hematocrit 39.9 % (41.0-53.0); Hemoglobin 13.5 g/dL (13.5-16.0); Immature Granulocytes % (Auto) 0 % (0-0); Immature Granulocytes Auto 0.05 Thou/mm3 (0.00-0.00); Lymphocytes # (Auto) 1.7 Thou/mm3 (1.0-4.8); Lymphocytes % (Auto) 14 % (10-50); Mean Corpuscular HGB Conc 33.8 g/dl (31.0-37.0); Mean Corpuscular Hemoglobin 29.6 pg (25.0-35.0); Mean Corpuscular Volume 88 fL (80-100); Monocytes # (Auto) 0.9 Thou/mm3 (0.0-0.8); Monocytes % (Auto) 8 % (0-12); Neutrophils # (Auto) 8.2 Thou/mm3 (1.8-7.7); Neutrophils % (Auto) 71 % (37-80); Nucleated Red Blood Cell % 0 /100 WBC (0); Platelet Count 247 Thou/mm3 (140-440); RDW Standard Deviation 44.4 fL (35.1-43.9); Red Blood Count 4.56 Miln/mm3 (4.50-5.90); White Blood Count 11.5 Thou/mm3 (3.8-10.6)
[2025-05-11 06:34] LABS: B-Type Natriuretic Peptide 766 pg/mL (0-100)
[2025-05-11 06:37] LABS: Alanine Aminotransferase 9 U/L (10-49); Albumin, Serum 3.9 gm/dL (3.4-4.8); Albumin/Globulin Ratio 1.5 (1.2-2.2); Alkaline Phosphatase 66 U/L (46-116); Anion Gap 12 (7-16); Aspartate Amino Transferase 22 U/L (0-34); BUN/Creatinine Ratio 18 Ratio (12-20); Blood Urea Nitrogen 18 mg/dL (9-23); Calcium 8.5 mg/dL (8.3-10.6); Calcium (Corrected) 8.6 mg/dL (8.5-10.1); Carbon Dioxide 31.2 mMol/L (20.0-31.0); Chloride 100 mMol/L (98-107); Estimated Creatinine Clearance 49.3 mL/min (>60); Globulin 2.6 gm/dL (2.3-3.5); Glucose 113 mg/dL (74-106); Osmolality,Calculated 287 (275-295); Potassium 3.3 mMol/L (3.4-5.1); Sodium 143 mMol/L (136-145); Total Protein 6.5 gm/dL (5.7-8.2); eGFR > 60 See Note
[2025-05-11 08:00] VITALS: BP 129/71; PULSE 52; RESP 21; TEMP 36.2; O2SAT 94
[2025-05-11] MEDS: POTASSIUM CHLORIDE 20 mEq TABCR 40 MEQ PO (08:30)
[2025-05-11 08:31] VITALS: BP 129/71; PULSE 63
[2025-05-11] MEDS: METOPROLOL SUCCINATE XL 25 MG TABCR PO (08:31)
[2025-05-11] MEDS: DAPAGLIFLOZIN PROPANEDIOL 5 MG TABLET 10 MG PO (08:31)
[2025-05-11 08:32] VITALS: BP 129/71; PULSE 63
[2025-05-11] MEDS: ASPIRIN EC 81 MG TABEC PO (08:32)
[2025-05-11] MEDS: FUROSEMIDE INJ 10 MG/ML 4ML VIAL 40 MG IVP (08:32)
[2025-05-11] MEDS: SACUBITRIL 24 MG/VALSARTAN 26 MG TABLET 1 TAB PO (08:32)
[2025-05-11] MEDS: TAMSULOSIN HCL 0.4 MG CAPSULE PO (08:32)
[2025-05-11] MEDS: PANTOPRAZOLE 40 MG TABLET PO (08:32)
--- NOTE | 2025-05-11 08:38 | PC.SS ---
Addendum entered by RACHEL Gilliland 05/11/25 12:08: Transport ETA with is 12:30pm. Bedside RN [place] aware and patient and aware. Updated clinicals sent to via [employer] along with [facility]. Addendum entered by RACHEL Gilliland 05/11/25 11:25: SS update: [facility]. Rachael Quinteros at [facility] confirms insurance authorization was obtained and patient can d/c to their facility today. Addendum entered by RACHEL Gilliland 05/11/25 09:05: SS follow up: attempted contact to [facility] phone line to inform them Level 2 needs to be reviewed. Voicemail provided. Original Note: SS follow up: attempted contact with [facility] fancy packer Volodymyr at [phone], unavailable at this time, voicemail provided.
--- NOTE | 2025-05-11 09:43 | ESPR_ITS ---
Documentation for date of: 05/11/25 Subjective Subjective Interval history: Case discussed with internal medicine team Okay to discharge patient home on a PPI twice daily Exam Vital Signs Temp Pulse Resp BP Pulse Ox O2 Del Method O2 Flow Rate 97.2 F 63 21 H 129/71 94 L Nasal Cannula 2 05/11/25 08:00 05/11/25 08:32 05/11/25 08:00 05/11/25 08:32 05/11/25 08:00 05/11/25 08:00 05/11/25 08:00 Objective Labs 05/11/25 04:47 05/11/25 04:47 Labs: Laboratory Results - last 24 hr 05/11/25 04:47 WBC 11.5 H RBC 4.56 Hgb 13.5 Hct 39.9 L MCV 88 MCH 29.6 MCHC 33.8 RDW Std Deviation 44.4 H Plt Count 247 Neut % (Auto) 71 Lymph % (Auto) 14 [place] % (Auto) 8 Eos % (Auto) 5 Baso % (Auto) 1 Neut # (Auto) 8.2 H Lymph # (Auto) 1.7 [place] # (Auto) 0.9 H Eos # (Auto) 0.6 H Baso # (Auto) 0.2 Immature Gran # (Auto) 0.05 H Absolute Nucleated RBC 0.00 Immature Gran % 0 Nucleated RBC % 0 Sodium 143 Potassium 3.3 L Chloride 100 Carbon Dioxide 31.2 H Anion Gap 12 BUN 18 Creatinine 1.0 Estim Creat Clear Calc 49.3 L eGFR > 60 BUN/Creatinine Ratio 18 Glucose 113 H Calculated Osmolality 287 Calcium 8.5 Corrected Calcium 8.6 Magnesium 2.0 Total Bilirubin 1.0 AST 22 ALT 9 L Alkaline Phosphatase 66 B-Natriuretic Peptide 766 H* Total Protein 6.5 Albumin 3.9 Globulin 2.6 Albumin/Globulin Ratio 1.5 Impressions Impression: Esophageal ulcers Stable hemoglobin hematocrit okay to discharge patient home on a PPI to be followed by the PCP ABG Interpretation ABG results: 05/08/25 19:21 VBG pH 7.52 VBG pCO2 34 L VBG pO2 55 VBG Base Excess 5 H Assessment & Plan A&P Narrative # Hematemesis # Drop in hemoglobin hematocrit Plan Fiberoptic esophagogastroduodenoscopy with possible biopsy possible therapeutic intervention under intravenous moderate sedation Consent obtained and the procedure has been scheduled Other medical problems include # Diabetes mellitus with peripheral neuropathy # Recent fall Thank you very much for the opportunity to participate in the care of this patient Time Spent With Patient Time: Total time spent is greater than 50% in coordination of care (as documented) at patient's floor/unit and/or counseling patient:
--- NOTE | 2025-05-11 09:49 | ESDS_ITS ---
Planned Discharge Date 05/11/25 DS: Providers Provider Date of admission: 05/08/25 23:13 Primary care physician: Physician No Primary/Family Admitting Provider: Dakota Villalobos MD Attending Provider on Admission: Ryan Acharya MD Consults: 05/08/25 23:16 Consult to Cardiology Routine Comment: Consulting Provider: Remi Mares 05/09/25 08:09 Referral Physical Therapy Routine Comment: Physician Instructions: 05/09/25 15:59 Consult to Gastroenterology Routine Comment: GI bleed Consulting Provider: Linwood Cao Attending Provider on DC: Ryan Acharya MD Discharging Provider: Ryan Acharya MD DS: Diagnosis Problem List Completed Was Problem List Reviewed/Reconciled?: Yes Hospital Course Hospital Course Hospital course: Reason for hospitalization: new onset CHF, GI bleed Luis Humphreys is 79 yr male with PMH peripheral neuropathy, depression, and DM2 was admitted to the hospital on 05/08/2025 due to worsening cough, SOB, and fall. Patient's at bedside stated that he had fell while trying to use the toilet. She tried to assist patient up but was not able. Eventually called EMS who brought to ED. Patient's stated that he has been having trouble with his short-term memory and he has been more secluded since they moved to [place] from [place]. He is alert and oriented x4. Initial labs were relevant for low hemoglobin 12, hypokalemia 3.3, troponinemia, and elevated BNP. Initial imaging included chest x-ray which showed CHF pattern and head CT which was unremarkable. Cardiology Dr. Mares was consulted. Patient was started on IV Lasix and Metoprolol Succinate 25 mg qday. Echo from 05/08/2025 Normal LV size with mildly decreased LV function. Estimated EF of 40 to 45%. Grade 2 diastolic dysfunction.Normal RV size and function. RVSP could not be estimated because of the trace TR. Massively dilated LA as well as mildly dilated RA. Moderate to severe calcification of aortic valve. His symptoms improved significantly and maintained good urine output while on diuretics. Patient also started on Entresto and dapagliflozin as part of GDMT therapy. Family requested evaluation of possible GI bleed as stated that he had 1 episode of hematemesis at home. EGD completed on 05/10/2025 significant for esophageal ulcers, gastritis. No evidence of bleeding. Hemoglobin remained stable. Patient is now in stable condition and ready for discharge to SNF to more PT. Recommendations were given as below. Discharge Recommendations: Start taking metoprolol, furosemide, Entresto, and dapagliflozin as prescribed for treatment of newly diagnosed heart failure. Increase pantoprazole dose to 40mg BID for treatment of ulcers. Incorporate peptic ulcer diet. Continue taking previous medications. Follow up with fur cutting machine operator Dr. Mares in 1 week. Follow up with PCP in 1-2 weeks. Hospital Diagnoses: #Dyspnea 2/2 new onset HFrEF (EF 40-45%) #Acute combined systolic and diastolic CHF #Possible Hematemasis #Non insulin dependent type 2 diabetes, well controlled #Peripharl neuropathy #Ground-level fall #Troponinemia-resolved The patient's management plan was discussed with my attending physician Dr. Acharya. Estela Harris MD, PGY-1 Time Spent with Patient Time attestation: Total time spent providing and/or coordinating discharge services: Time spent: Greater than 30 minutes Quality: Stroke Pt Provided Written Stroke Discharge Instructions: No (STROKE S/S) Exam Vital Signs Temp Pulse Resp BP Pulse Ox O2 Del Method O2 Flow Rate 97.2 F 63 21 H 129/71 94 L Nasal Cannula 2 05/11/25 08:00 05/11/25 08:32 05/11/25 08:00 05/11/25 08:32 05/11/25 08:00 05/11/25 08:00 05/11/25 08:00 Narrative Exam General: elderly male, No acute distress, cooperative HEENT: NCAT, No JVD noted. Mucosa moist. Pupils are equal and reactive to light bilaterally Cardiovascular: Normal S1 and S2. Regular rate and rhythm. Respiratory: Lungs are clear to auscultation bilaterally. No wheezing or crackles heard. Abdomen: Soft, nontender, not distended, normal bowel sounds. Skin: Warm to touch, dry, no rashes noted Musculoskeletal: No gross injuries. Able to move all 4 extremities. No pitting edema Neuro: Alert and oriented x3. No focal neuro deficits. Psych: Normal affect and mood Discharge Plan Plan Patient Disposition: Xfer Skilled Nsg Fac (SNF) Disposition Comment: SNF for PT Patient condition on transfer: Stable Prescriptions/Referrals Prescriptions/Med Rec: New dapagliflozin propanediol 5 mg Tablet 10 mg PO QAM 30 Days Qty: 60 0RF furosemide [Lasix] 40 mg tablet 40 mg PO QDAY Qty: 30 0RF metoprolol succinate 25 mg tablet extended release 24 hr 25 mg PO QDAY Qty: 30 0RF Entresto 24-26 mg Tablet 1 tab PO BID 30 Days Qty: 60 0RF Continued gabapentin 800 mg tablet 800 mg PO TID tamsulosin 0.4 mg capsule 0.4 mg PO DAILY Patient Comments: TAKE 1 CAPSULE BY MOUTH DAILY bupropion HCl 150 mg tablet sustained-release 12 hr 150 mg PO BID sertraline 100 mg tablet 100 mg PO HS Patient Comments: TAKE 1 TABLET BY MOUTH AT BEDTIME fluticasone propionate 50 mcg/actuation spray,suspension 1 spray intranasal QDAY PRN (Reason: nasal congestion) Rx Instructions: administer into each nostril Changed pantoprazole 40 mg tablet,delayed release (DR/EC) 40 mg PO BID 30 Days Qty: 60 0RF Patient Comments: TAKE 1 TABLET BY MOUTH DAILY Referrals: Remi Mares MD [Physician] - No Primary/Family,Physician [Primary Care Provider] - Patient/Caregiver Discharge Instructions Other Discharge Activity Instructions:: Start taking metoprolol, furosemide, Entresto, and dapagliflozin as prescribed for treatment of newly diagnosed heart failure. Increase pantoprazole dose to 40mg BID for treatment of ulcers. Continue taking previous medications. Follow up with fur cutting machine operator Dr. Mares in 1 week. Follow up with PCP in 1-2 weeks. Education Materials: Heart Failure Meds, Discharge Instructions- Eating ..., Heart Failure Print Language: O[place]i Stand Alone Forms: Kristie Award Info., Patient Portal Info Letter Discharge Order Discharge Orders: Discharge (Routine); Ordered 05/11/25 Ordered By: Estela Harris Quality Discharge Quality Measures VTE prophylaxis Attestestation Attestation I have examined the patient, reviewed labs and imaging findings, discussed the case with the resident(s), and reviewed entered orders. I agree with the plan of care as outlined in this note. Time Spent: [address] Marck MD
--- NOTE | 2025-05-11 10:56 | PD.RESPRO ---
Documentation for date of: 05/11/25 Subjective Subjective Interval history: Patient is an 79-year-old male with a past medical history of diabetes mellitus type 2 [id number] (no medication on board/initially on metformin but DC'd after weight loss), peripheral neuropathy, history of depression, and BPH who presented to the emergency room with increasing shortness of breath and concern for a mechanical level mechanical fall. Patient stated requires pillows to sleep at night (positive orthopnea), denied paroxysmal nocturnal dyspnea, lower peripheral edema gradually increasing over the last 15 years. Patient experiences shortness of breath upon ambulation, per , patient can only take about 45 steps and then experiences shortness of breath. Patient has never followed up with a vendor management associate. Patient was set to establish primary care this week with Dr. Bowman. Concern for mechanical fall that occurred in the restroom. Patient stated he lost his balance as he was turning with his walker. Patient denied tripping on a rug or on his feet and to clear of any obstructions. Patient denied seizure-like activity. Patient denied losing consciousness. Patient denied head trauma. Patient denied dizziness or syncopal event. Per at bedside, patient has been having increasing problems with short-term memory and balance. Patient denied any chest pain or pressure. Denied nasuea or diaphoresis. Denied any recent sick contacts. 05/10/2025: No ovenright events. Pateint examined at bedside and found only with trace edema. Patient stated improved SOB even when laying in a supine position. Patient denied chest pain or palpitations. Transisiton patinet to oral lasix 40 mg PO and continue Metoprolol. Dapagliflozin started by primary team. 05/11/2025: No ovenright events. Patient examined at bedside. Patinet denied chest pain and improved orthopnea. No peripheral edema noted. Exam Vital Signs Temp Pulse Resp BP Pulse Ox O2 Del Method O2 Flow Rate 97.2 F 63 21 H 129/71 94 L Nasal Cannula 2 05/11/25 08:00 05/11/25 08:32 05/11/25 08:00 05/11/25 08:32 05/11/25 08:00 05/11/25 08:00 05/11/25 08:00 Narrative Exam General Appearance: Alert & Oriented X2, well-nourished male who is lying in bed in no acute distress HEENT: Skull symmetrical and atraumatic. Conjunctivae pale pink and moist. Pupils equal, round, reactive to light and accommodation (PERRL). External ear without lesion or discharge. Cardio: Normal Rate and Rhythm with S1 and S2 heart sounds. Faint systolic murmur. No bruits on carotid auscultation. Trace edema. Lungs: Symmetric with good expansion. Chest and back non-tender. Breath sounds vesicular without crackles, wheezing or rhonchi Abdomen: Non-tender, Non-distended, Normal Reactive Bowel Sounds Neuro: Alert, cooperative, oriented to person, place, and NO time. Speech clear. CN grossly intact. Upper motor strength 5/5 and Lower motor strength 5/5. Sensation intact. Objective Labs 05/11/25 04:47 05/11/25 04:47 Labs: Laboratory Results - last 24 hr 05/11/25 04:47 WBC 11.5 H RBC 4.56 Hgb 13.5 Hct 39.9 L MCV 88 MCH 29.6 MCHC 33.8 RDW Std Deviation 44.4 H Plt Count 247 Neut % (Auto) 71 Lymph % (Auto) 14 [place] % (Auto) 8 Eos % (Auto) 5 Baso % (Auto) 1 Neut # (Auto) 8.2 H Lymph # (Auto) 1.7 [place] # (Auto) 0.9 H Eos # (Auto) 0.6 H Baso # (Auto) 0.2 Immature Gran # (Auto) 0.05 H Absolute Nucleated RBC 0.00 Immature Gran % 0 Nucleated RBC % 0 Sodium 143 Potassium 3.3 L Chloride 100 Carbon Dioxide 31.2 H Anion Gap 12 BUN 18 Creatinine 1.0 Estim Creat Clear Calc 49.3 L eGFR > 60 BUN/Creatinine Ratio 18 Glucose 113 H Calculated Osmolality 287 Calcium 8.5 Corrected Calcium 8.6 Magnesium 2.0 Total Bilirubin 1.0 AST 22 ALT 9 L Alkaline Phosphatase 66 B-Natriuretic Peptide 766 H* Total Protein 6.5 Albumin 3.9 Globulin 2.6 Albumin/Globulin Ratio 1.5 ABG Interpretation ABG results: 05/08/25 19:21 VBG pH 7.52 VBG pCO2 34 L VBG pO2 55 VBG Base Excess 5 H Quality Measures Quality Measures none Advance care planning discussed with:: patient and spouse Assessment & Plan Assessment Current Active Medications: Generic Name Dose Route Start Last Admin Trade Name Freq PRN Reason Stop Dose Admin Acetaminophen 650 mg 05/09/25 09:14 Acetaminophen 325 Mg Tablet PO 06/07/25 23:12 Q6H PRN pain 1-3 OR Fever >100.4 Hydrocodone Bitart/Acetaminophen 1 tab 05/08/25 23:13 Hydrocodone/Apap 5/325 Tablet PO 05/13/25 23:12 Q4HR PRN PAIN SCALE 4-10(Mod-Sev Aspirin 81 mg 05/09/25 09:00 05/11/25 08:32 Aspirin Ec 81 Mg Tabec PO 06/08/25 08:59 81 mg QDAY VLADISLAV Administration Dapagliflozin 10 mg 05/10/25 09:00 05/11/25 08:31 Dapagliflozin Propanediol 5 Mg Tablet PO 06/09/25 08:59 10 mg QAM VLADISLAV Administration Dextrose 25 ml 05/09/25 00:00 Dextrose 50%-Water Inj 50 Ml Syringe IV 06/08/25 00:00 Q15MIN PRN BG 50-70 responsive npo pt Dextrose 50 ml 05/09/25 00:00 Dextrose 50%-Water Inj 50 Ml Syringe IV 06/08/25 00:00 Q15MIN PRN BG <50 OR BG <70 & pt unresponsive Furosemide 40 mg 05/11/25 09:00 05/11/25 08:32 Furosemide Inj 10 Mg/Ml 4ml Vial IVP 06/10/25 08:59 40 mg QDAY VLADISLAV Administration Glucagon 1 mg 05/09/25 00:00 Glucagon Inj 1 Mg Vial IM Q15MIN PRN BG <70, and no IV access Insulin Human Lispro 0 unit 05/09/25 00:00 05/11/25 06:40 Insulin Lispro (Admelog) 1 Unit/0.01 Ml Unit SC 06/08/25 00:00 Not Given Q6H VLADISLAV Protocol Metoprolol Succinate 25 mg 05/10/25 09:00 05/11/25 08:31 Metoprolol Succinate Xl 25 Mg Tabcr PO 06/09/25 08:59 25 mg QDAY VLADISLAV Administration Ondansetron HCl 4 mg 05/08/25 23:13 Ondansetron Inj 2 Mg/Ml Inj 2 Ml IVP 06/07/25 23:12 Q6H PRN NAUSEA OR VOMITING Protocol Pantoprazole Sodium 40 mg 05/11/25 09:00 05/11/25 08:32 Pantoprazole 40 Mg Tablet PO 06/09/25 20:59 40 mg BID VLADISLAV Administration Potassium Chloride 20 meq 05/11/25 12:00 Potassium Chloride 20 Meq Tabcr PO 05/11/25 12:01 X1 ONE Sacubitril/Valsartan 1 tab 05/11/25 09:00 05/11/25 08:32 Sacubitril 24 Mg/Valsartan 26 Mg Tablet PO 06/10/25 08:59 1 tab BID VLADISLAV Administration Sertraline HCl 100 mg 05/09/25 21:00 05/10/25 21:20 Sertraline Hcl 25 Mg Tablet PO 06/08/25 20:59 100 mg HS VLADISLAV Administration Tamsulosin HCl 0.4 mg 05/09/25 09:00 05/11/25 08:32 Tamsulosin Hcl 0.4 Mg Capsule PO 06/08/25 08:59 0.4 mg DAILY VLADISLAV Administration Plan Patient is an 79-year-old male with a past medical history of diabetes mellitus type 2 [id number] (no medication on board/initially on metformin but DC'd after weight loss), peripheral neuropathy, history of depression, and BPH who was admitted for new onset of CHF and mechanical ground level. Cardiology Consulted for new onset of CHF. # Acute combined systolic and diastolic congestive heart failure - will eventually need to rule out ischemic etiology too #CHF HFrEF 40%-45% (05/09/2025) #Grade 2 Diastolic Dysfunction Likely CHF progressive, as patient has had peripheral edema for the past 10 years, recently worsening over the last couple months, positive orthopnea, dyspnea on ambulation, negative PND. CHF exacerbation likely the setting of cardiomypoathy and unknown etiology for now. Echo ordered. Monitor output. 05/09/2025: Output not tracked, fluid restricted to 2000 ml 05/10/2025: 840/3300/-2460 05/11/2025: 1280/1350/-70 BNP Dry 766, Dry WT 70.352 kg Echo (05/08/2025): Normal LV size with mildly decreased LV function. Estimated EF of 40 to 45%. Grade 2 diastolic dysfunction.Normal RV size and function. RVSP could not be estimated because of the trace TR. Massively dilated LA as well as mildly dilated RA. Moderate to severe calcification of aortic valve. Velocity is probably underestimated and possible mild aortic stenosis. Mild MAC. Mild MR trace AI and trace TR. Dilated IVC. No pericardial effusion. Cxr: noted for prominent vascular congestion & cardiac enlargement EKG:V1 and V 2 r wave Anteriolateral leads noted for hypertrophy, NO ST elvation noted, non specific ST changes. QRS 110, QTC 458 Lipid Panel: Triglycerides 89, Cholesterol 141, LDL 85, HDL 38 A1c 6.4% TSH 3.60 NYHA Class: III ASCVD: non applicable given age, consider adding Atorvastatin non the less Plan: -Metoprolol XL 25 mg qday -Lasix 40 mg PO Qday -Dapagliflozin 10 mg PO qday, started by primary team -Entresto 1 tablet BID, if blood pressure does not permit, please decrease to Entresto 1/2 tablet BID. -Work towards GDMT, Eventually spirinolactone if renal function stable. -K>4 and Mg >2 -Fluid Restriction (1999) and Sodium Restriction 2 g per day -SpO <90%, support PRN -will eventually need to rule out ischemic etiology too. Continue work up as outpt #Ground-Level Fall #Peripheral Neuropathy Ground level fall likely in the setting of CHF and lower peripheral edema vs pre-syncopal event, such as orthostatic pressure vs TIA, no slurred speech/No loss of motor funciton vs less likely secondary to seizure. CT head negative. Plan -Treat CHF -PT -Consider B12/Folic and Thiamine levels, likely outpatinet -Consider Orthostatic Vitals -Patient would likely benefit of outpatient neurology given concern short term memory problems and possible neuropathy vs gait -Primary team holding gabapentin, patient denied pain. #Diabetes Mellitus Type type 2, non insulin dependent Past medical history of diabetes, non medication listed during admission, per at bedside, previously on Metformin A1c (05/09/2025): 6.4% Plan -Sliding Scale -Monitor Fasting Glucose #Esophageal Ulcer #Gastritis #Upper GI bleed, ruled out s/p EGD on 05/10/[address] Cao. EGD significant for esophageal ulcer and gastritis. 4 cm hiatal hernia noted. Plan -Protonix 40 mg BID, upon discharge -GI consulted. #Microcytic Anemia Patient has a past medical history of esophageal stricter sp dilation. Patient denied dysphagia. Given reported coffee ground emesis, GI consuled. Hgb 13 hct 38.0 mcv 87 Plan -Consider iron panel /Ferritin -GI Consulted #Depression home medication Sertraline and buspirone for depression vs dementia Plan: -Sertraline 100 mg PO HS resumed Health Maintenance: Disp: Pt is currently admitted to floors for further management of CHF and mechanical fall, Cardiology consulted for CHF. Please follow up with cardiology, Dr. Mares, within one week of discharge. FEN: Peptic Diet DVT: on subQ heparin 8 HR Code: DNR - The patient's plan was discussed with attending Dr. Suzan Cavazos MD PGY1 Internal Medicine Attending Provider Attestation/Addendum I have personally seen and examined the patient separately on the above date of service and discussed the plan of care with the resident. I reviewed the resident Dr. Adelia Cavazos consultation progress note and agree with the resident findings and plan in the note above and have also edited the documentation to reflect my findings and plan. Remi Mares M.D. Interventional Cardiology
[2025-05-11 11:45] VITALS: BMI 13.0
[2025-05-11 12:00] VITALS: BP 114/66; PULSE 52; TEMP 36.6; O2SAT 93
--- NOTE | 2025-05-11 12:10 | PC.NURSE ---
REPORT GIVEN TO NURSE YANEZ AT [facility] @1200. PATIENT A/O, ON ROOM AIR, NO DISTRESS, A BEDSIDE.
== END 2025-05-11 12:50 | disposition skilled nursing facility (03) | DRG 380 ==
LOC: SERX 22:39 → SERHOLD 23:54 → S2NX 05-09 05:38
PROVIDERS: Physician Assistant; Specialist; Admitting Provider Student in an Organized Health Care Education/Training Program; Emergency Provider Emergency Medicine; Visit Provider Student in an Organized Health Care Education/Training Program
PROC: 0DB48ZX Excision of Esophagogastric Junction, Via Natural or Artificial Opening Endoscopic, Diagnostic (ICD-10-PCS; CPT 43239; principal; 2025-05-10 19:00)
DX: K22.11 Ulcer of esophagus with bleeding (principal); I50.43 Acute on chronic combined systolic (congestive) and diastolic (congestive) heart failure; E11.42 Type 2 diabetes mellitus with diabetic polyneuropathy; R06.09 Other forms of dyspnea; R41.82 Altered mental status, unspecified; E87.6 Hypokalemia; R79.89 Other specified abnormal findings of blood chemistry; F32.A Depression, unspecified; Z66 Do not resuscitate; D50.9 Iron deficiency anemia, unspecified; I25.10 Atherosclerotic heart disease of native coronary artery without angina pectoris; K29.70 Gastritis, unspecified, without bleeding; K44.9 Diaphragmatic hernia without obstruction or gangrene; N40.0 Benign prostatic hyperplasia without lower urinary tract symptoms; W18.30XA Fall on same level, unspecified, initial encounter; Z79.4 Long term (current) use of insulin; Z79.84 Long term (current) use of oral hypoglycemic drugs; Z79.899 Other long term (current) drug therapy
CPT/HCPCS: 36415; 70450; 71045; 73020; 74018; 80053; 80061; 81001; 82803; 83036; 83605; 83735; 83880; 84145; 84443; 84484; 85025; 87040; 87400; 87502; 87811; 93005; 93306; 96365; 97162; 99285; J1200; J1815; J1938; J2250; J2470; J3010; J3475; J3480; J8499; A9270